=== PATIENT | male | born 1945 | race Caucasian/White ===

== ENCOUNTER 2016-07-29 12:16 | Emergency (ER) | payer OTHER, MEDICARE ==
[~2016-07-29] VITALS: Ht 177.8 cm; Wt 119.5 kg
[~2016-07-29 12:16] MED LIST: ALPR-411 PO; CHOL100010 PO; CYAN10005 PO; GLC/500 PO; KETO2SHA TOP; ROSU5TAB PO; WARF-246 PO
[2016-07-29 12:26] VITALS: TEMP 36.8; Ht 177.8 cm; Wt 119.5 kg
[2016-07-29 13:16] LABS: BASO % 0.4 %; BASO ABS # 0.02 K/uL (0-0.2); COMPLETE YES; HEMATOCRIT 41.8 % (42-52); LYMPH % 16.1 %; LYMPH ABS # 0.74 K/uL (1.2-3.4); MEAN CELL VOLUME 87.4 fL (80-100); MEAN CORPUSCULAR HEMOGLOBIN 30.1 pg (25-34); MEAN CORPUSCULAR HGB CONC 34.4 g/dl (32-36); MONO % 6.7 %; NEUT % 74.8 %; PLATELET COUNT 160 K/uL (130-400); RED BLOOD COUNT 4.78 M/uL (4.7-6.1)
--- NOTE | 2016-07-29 13:20 | DIAGNOSTIC IMAGING REPORT ---
CHEST ONE VIEW PORTABLE CLINICAL HISTORY: EVALUATE WEAKNESS dyspnea COMPARISON STUDY: 07/16/2016 FINDINGS: The bones soft tissues and hemidiaphragms are normal. The cardiomediastinal silhouette is normal. The lungs are clear. The pulmonary vasculature is normal. IMPRESSION: Negative chest. Electronically signed by: Chandler Koch M.D. 07/29/2016 1:18 PM
[2016-07-29 13:33] VITALS: O2SAT 97
[2016-07-29 13:34] LABS: ALT/SGPT 36 U/L (12-78); BLOOD UREA NITROGEN 11 mg/dl (7-18); BUN/CREATININE RATIO 12.1 (10-20); CALCIUM 8.7 mg/dl (8.5-10.1); CARBON DIOXIDE 23 mmol/L (21-32); CHLORIDE 109 mmol/L (98-107); CREATININE 0.94 mg/dl (0.60-1.40); GLUCOSE 111 mg/dl (70-99); MAGNESIUM 2.1 mg/dl (1.8-2.4); POTASSIUM 3.7 mmol/L (3.5-5.1); SODIUM 142 mmol/L (136-145)
[2016-07-29 13:39] LABS: ALKALINE PHOSPHATASE 42 U/L (45-117); AST/SGOT 21 U/L (15-37)
[2016-07-29 13:46] LABS: INR 1.9 (0.9-1.1); PARTIAL THROMBOPLASTIN RATIO 1.2; PROTHROMBIN TIME (PATIENT) 20.7 SECONDS (9.0-12.0)
[2016-07-29 14:38] LABS: URINE APPEARANCE CLEAR (CLEAR); URINE BILIRUBIN NEG (NEG); URINE COLOR DK YELLOW; URINE NITRITE NEG (NEG); URINE SPECIFIC GRAVITY 1.023 (1.000-1.030); UROBILINOGEN NEG (NEG)
[2016-07-29 15:01] LABS: MANUAL MICROSCOPIC REQUIRED? NO; REVIEW REQ? NO
--- NOTE | 2016-07-29 16:00 | DIAGNOSTIC IMAGING REPORT ---
HEAD CT NONCONTRAST CT DOSE: HISTORY: Mental status change diffuse weakness TECHNIQUE: Multiaxial CT images of the head were performed without the use of intravenous contrast. Comparison: December 01, 2015 Findings: The paranasal sinuses and mastoid air cells are clear. Scattered areas of chronic small vessel change and encephalomalacia. No change from the prior study. No new or interval finding. No evidence for acute intracranial hemorrhage. Impression: Chronic and age-related change. No acute intracranial abnormality. Electronically signed by: Chandler Koch M.D. 07/29/2016 3:58 PM Dictated Date/Time: 07/29/2016 3:57 PM
--- NOTE | 2016-07-29 16:07 | DIAGNOSTIC IMAGING REPORT ---
CT ANGIOGRAM OF THE CHEST CLINICAL HISTORY: Shortness of breath. Suspected pulmonary embolism. COMPARISON STUDY: 08/19/2015 TECHNIQUE: Following the IV administration of 116 mL of Optiray-320, CT angiogram of the thorax was performed from the thoracic inlet to the lung bases utilizing the pulmonary embolus protocol. Images are reviewed in the axial, sagittal, and coronal planes. IV contrast was administered without complication. MIP imaging was performed. CT DOSE: 1827.38 mGy.cm FINDINGS: No pathologically enlarged axillary mediastinal or hilar lymph nodes were visualized. There was no evidence of thoracic aortic dilatation. There were no pulmonary artery filling defects to indicate acute pulmonary embolism. No pleural effusions are visualized. There is no focal pulmonary consolidation there is a 2 mm right middle lobe pulmonary nodule. There is subpleural reticulation within the left upper lobe unchanged from the preceding study. There is a 2.5 mm calcified granuloma within left upper lobe. There is a stable 2 cm left lobe thyroid nodule. There is a stable 21 mm left adrenal nodule. There is mild hepatic steatosis. There are stable renal hypodensities likely representing cysts. There is a midline subcutaneous mass, likely representing a sebaceous cyst. IMPRESSION: 1. No CT evidence of acute pulmonary embolism 2. No acute intrathoracic findings. Electronically signed by: Angel Driscoll M.D. 07/29/2016 4:05 PM Dictated Date/Time: 07/29/2016 3:58 PM
[2016-07-29 18:27] VITALS: BP 165/78; PULSE 73; O2SAT 98
--- NOTE | 2016-07-29 18:33 | EMERGENCY ROOM VISIT NOTE ---
History Report prepared by Sisi: Cathy Cade Under the Supervision of: Dr. Jozef Barth D.O. First contact with patient: 12:38 Chief Complaint: WEAKNESS Stated Complaint: WEAK Nursing Triage Summary: Triage note: pt ambulatory to triage. pt reports increased numbness in arms and legs. pt reports he has had numbness x 2 years. pt reports "while i was driving here today i felt like i was going to pass out. " History of Present Illness The patient is a 71 year old male who presents to the Emergency Room with complaints of intermittent episodes of generalized weakness over the past 6 months, which has become progressively worse within the last 2 months. Currently , while resting, he is not in any discomfort, but he states that his symptoms are exacerbated with minimal exertion. Since the time of onset, the patient has been experiencing sudden onsets of generalized weakness with exertion, however, over the last 2 months the episodes have become more frequent with simple events , such as getting up out of his chair or walking to the mailbox. During these episodes, he also notes that he becomes short of breath and experiences cramping /numbness to his arms and legs. He states that he also feels like he is going to pass out, but he denies ever losing consciousness. He also denies experiencing chest pain, diaphoresis, nausea or vomiting during these episodes. Patient states that he has followed up with his pharmacy benefit manager 3 times in the past month and has had multiple tests done without significant results. He also has an appointment for additional scans for hematology/oncology within he next week. However, after experiencing an additional episode with similar, but more intense symptoms at 0830 this morning, he came to the ED for further evaluation. Patient also notes that he just got over a virus including headache , fever of 102F, sinus congestion and generalized body aches 2 days prior, but those symptoms have since resolved. Patient has a history of CAD, htn, and Delray cell carcinoma. Source of History: patient Onset: 0830 this am Position: other (generalized) Symptom Intensity: no current discomfort Quality: other (weakness) Timing: intermittent Modifying Factors (Worsening): exertion Modifying Factors (Relieving): rest Associated Symptoms: + SOB, + numbness (arms and legs), No chest pain, No nausea, No vomiting Review of Systems See HPI for pertinent positives & negatives. A total of 10 systems reviewed and were otherwise negative. Past Medical & Surgical Medical Problems: (1) Bilateral pulmonary embolism (2) CAD (coronary artery disease) (3) DVT (deep venous thrombosis) (4) History of right hip replacement (5) Hypercholesteremia (6) Hypertension (7) Delray cell carcinoma Family History FH: cancer FHx: myocardial infarction Social History Smoking Status: Former Smoker Alcohol Use: occasionally Drug Use: none Marital Status: Housing Status: lives with significant other Occupation Status: employed Current/Historical Medications Scheduled Cholecalciferol (Vitamin D), 2,000 INTER.UNIT PO DAILY Cyanocobalamin (Vitamin B-12), 1,000 MCG PO DAILY Metformin Hcl (Glucophage), 500 MG PO DAILY Rosuvastatin Calcium (Crestor), 5 MG PO Q2D Warfarin Sodium (Warfarin Sodium), 7.5 MG PO 3XWK Warfarin Sodium (Warfarin Sodium), 5 MG PO 4XWK Scheduled PRN Alprazolam (Alprazolam), 0.5 MG PO TID PRN for Anxiety Allergies Coded Allergies: Ciprofloxacin (Verified Allergy, Unknown, Unknown, 05/22/16) Niacin (Verified Allergy, Unknown, Unknown, 05/22/16) Paroxetine (Verified Allergy, Unknown, UNKNOWN, 05/22/16) Sulfamethoxazole w/Trimethoprim (Verified Allergy, Unknown, Unknown, 05/22) Statins (Verified Adverse Reaction, Intermediate, GI SYMPTOMS, 05/22/16) muscle pain Physical Exam Vital Signs Date Time Temp Pulse Resp B/P Pulse Ox O2 Delivery O2 Flow Rate FiO2 07/29/16 16:28 76 18 141/59 97 Room Air 07/29/16 13:38 73 07/29/16 13:33 69 12 144/71 95 Room Air 92 130/65 85 130/65 07/29/16 13:33 97 Room Air 07/29/16 12:26 36.8 97 20 161/86 97 Room Air Physical Exam GENERAL: Sitting up in bed, no acute distress, nontoxic. EYE EXAM: normal conjunctiva, PERRL and EOM's intact OROPHARYNX: no exudate, no erythema, lips, buccal mucosa, and tongue normal and mucous membranes are moist NECK: supple, no nuchal rigidity, no adenopathy, non-tender LUNGS: Clear to auscultation. Normal chest wall mechanics HEART: Faint systolic ejection murmur. ABDOMEN: abdomen soft, non-tender, normo-active bowel sounds, no masses, no rebound or guarding. BACK: Back is symmetrical on inspection and there is no deformity, no midline tenderness, no CVA tenderness. SKIN: no rashes and no bruising UPPER EXTREMITIES: upper extremities are grossly normal. LOWER EXTREMITIES: Calves are equal bilaterally with faint pitting edema NEURO EXAM: Normal sensorium, cranial nerves II-XII intact, normal speech, no weakness of arms, no weakness of legs. No drift. Finger to nose intact. Sensation intact. Medical Decision & Procedures ER Provider Diagnostic Interpretation: Xray results per the radiologist and my interpretation. Other results have been interpreted by the radiologist and reviewed by me. CT:Per my review, radiologist interpretation. CHEST ONE VIEW PORTABLE CLINICAL HISTORY: EVALUATE WEAKNESS dyspnea COMPARISON STUDY: 07/16/2016 FINDINGS: The bones soft tissues and hemidiaphragms are normal. The cardiomediastinal silhouette is normal. The lungs are clear. The pulmonary vasculature is normal. IMPRESSION: Negative chest. Electronically signed by: Chandler Koch M.D. 07/29/2016 1:[address] CT DOSE: HISTORY: Mental status change diffuse weakness TECHNIQUE: Multiaxial CT images of the head were performed without the use of intravenous contrast. Comparison: December 01, 2015 Findings: The paranasal sinuses and mastoid air cells are clear. Scattered areas of chronic small vessel change and encephalomalacia. No change from the prior study. No new or interval finding. No evidence for acute intracranial hemorrhage. Impression: Chronic and age-related change. No acute intracranial abnormality. Electronically signed by: Chandler Koch M.D. 07/29/2016 3:58 PM Dictated Date/Time: 07/29/2016 3:[address] ANGIOGRAM OF THE CHEST CLINICAL HISTORY: Shortness of breath. Suspected pulmonary embolism. COMPARISON STUDY: 08/19/2015 TECHNIQUE: Following the IV administration of 116 mL of Optiray-320, CT angiogram of the thorax was performed from the thoracic inlet to the lung bases utilizing the pulmonary embolus protocol. Images are reviewed in the axial, sagittal, and coronal planes. IV contrast was administered without complication. MIP imaging was performed. CT DOSE: 1827.38 mGy.cm FINDINGS: No pathologically enlarged axillary mediastinal or hilar lymph nodes were visualized. There was no evidence of thoracic aortic dilatation. There were no pulmonary artery filling defects to indicate acute pulmonary embolism. No pleural effusions are visualized. There is no focal pulmonary consolidation there is a 2 mm right middle lobe pulmonary nodule. There is subpleural reticulation within the left upper lobe unchanged from the preceding study. There is a 2.5 mm calcified granuloma within left upper lobe. There is a stable 2 cm left lobe thyroid nodule. There is a stable 21 mm left adrenal nodule. There is mild hepatic steatosis. There are stable renal hypodensities likely representing cysts. There is a midline subcutaneous mass, likely representing a sebaceous cyst. IMPRESSION: 1. No CT evidence of acute pulmonary embolism 2. No acute intrathoracic findings. Electronically signed by: Angel Driscoll M.D. 07/29/2016 4:05 PM Dictated Date/Time: 07/29/2016 3:58 PM Laboratory Results 07/29/16 13:05 Red Blood Count 4.78, Mean Corpuscular Volume 87.4, Mean Corpuscular Hemoglobin 30.1, Mean Corpuscular Hemoglobin Concent 34.4, Mean Platelet Volume 9.0, Neutrophils (%) (Auto) 74.8, Lymphocytes (%) (Auto) 16.1, Monocytes (%) (Auto) 6.7, Eosinophils (%) (Auto) 2.0, Basophils (%) (Auto) 0.4, Neutrophils # (Auto) 3.44, Lymphocytes # (Auto) 0.74, Monocytes # (Auto) 0.31, Eosinophils # (Auto) 0.09, Basophils # (Auto) 0.02 07/29/16 13:05 Test 07/29/16 13:01 07/29/16 13:05 07/29/16 13:40 07/29/16 17:27 Bedside Glucose 111 mg/dl (70-99) White Blood Count 4.60 K/uL (4.8-10.8) Red Blood Count 4.78 M/uL (4.7-6.1) Hemoglobin 14.4 g/dL (14.0-18.0) Hematocrit 41.8 % (42-52) Mean Corpuscular Volume 87.4 fL (80-100) Mean Corpuscular Hemoglobin 30.1 pg (25-34) Mean Corpuscular Hemoglobin Concent 34.4 g/dl (32-36) Platelet Count 160 K/uL (130-400) Mean Platelet Volume 9.0 fL (7.4-10.4) Neutrophils (%) (Auto) 74.8 % Lymphocytes (%) (Auto) 16.1 % Monocytes (%) (Auto) 6.7 % Eosinophils (%) (Auto) 2.0 % Basophils (%) (Auto) 0.4 % Neutrophils # (Auto) 3.44 K/uL (1.4-6.5) Lymphocytes # (Auto) 0.74 K/uL (1.2-3.4) Monocytes # (Auto) 0.31 K/uL (0.11-0.59) Eosinophils # (Auto) 0.09 K/uL (0-0.5) Basophils # (Auto) 0.02 K/uL (0-0.2) RDW Standard Deviation 41.0 fL (36.4-46.3) RDW Coefficient of Variation 12.7 % (11.5-14.5) Immature Granulocyte % (Auto) 0.0 % Immature Granulocyte # (Auto) 0.00 K/uL (0.00-0.02) Prothrombin Time 20.7 SECONDS (9.0-12.0) Prothromb Time International Ratio 1.9 (0.9-1.1) Activated Partial Thromboplast Time 32.1 SECONDS (21.0-31.0) Partial Thromboplastin Ratio 1.2 D-Dimer 190 ug/L FEU (0-500) Anion Gap 10.0 mmol/L (3-11) Est Creatinine Clear Calc Drug Dose 94.7 ml/min Estimated GFR () 94.8 Estimated GFR (Non- 81.8 BUN/Creatinine Ratio 12.1 (10-20) Calcium Level 8.7 mg/dl (8.5-10.1) Magnesium Level 2.1 mg/dl (1.8-2.4) Total Bilirubin 0.4 mg/dl (0.2-1) Direct Bilirubin 0.1 mg/dl (0-0.2) Aspartate Amino Transf (AST/SGOT) 21 U/L (15-37) Alanine Aminotransferase (ALT/SGPT) 36 U/L (12-78) Alkaline Phosphatase 42 U/L (45-117) Pro-B-Type Natriuretic Peptide 43 pg/ml (0-900) Total Protein 6.9 gm/dl (6.4-8.2) Albumin 3.5 gm/dl (3.4-5.0) Urine Color DK YELLOW Urine Appearance CLEAR (CLEAR) Urine pH 5.0 (4.5-7.5) Urine Specific [place] 1.023 (1.000-1.030) Urine Protein NEG (NEG) Urine Glucose (UA) NEG (NEG) Urine Ketones NEG (NEG) Urine Occult Blood NEG (NEG) Urine Nitrite NEG (NEG) Urine Bilirubin NEG (NEG) Urine Urobilinogen NEG (NEG) Urine Leukocyte Esterase NEG (NEG) Troponin I < 0.015 ng/ml (0-0.045) Laboratory results per my review. ECG Indication: weakness Rate (beats per minute): 72 Rhythm: sinus rhythm Findings: no ectopy, other (Normal axis.) ED Course ED COURSE: Vital signs were reviewed and showed hypertension. The patients medical record was reviewed The above diagnostic studies were performed and reviewed. ED treatments and interventions as stated above. 1241: The patient was evaluated in room A10. A complete history and physical examination was performed. 1330: Upon reevaluation, the patient was doing well. He was asymptomatic at this time. 1545: I revaluated the patient at this time and discussed the results of his workup that had returned. I recommended admission due to his worsening symptoms , but he stated that he would rather be worked up as an outpatient. He stated that he would only want to be admission if it is a full admission and not just for observation due to his insurance coverage. 1600: I spoke to case management. The patient's insurance is medicare and would require a 2 nights stay for admission. 1650: I reevaluated the patient at this time and updated him on the results of his workup, as well as my discussion with case management. Patient declined admission but stated that he would follow up with his pharmacy benefit manager tomorrow. A repeat troponin will be drawn. 1800: Reevaluated the patient at this time. Additional lab results were discussed. Discharge instructions were also discussed at this time. He verbalized his understanding and agreement with the treatment plan, and he is now ready for disposition. Based on the patients age, coexisting illnesses, exam and lab findings the decision to treat as an outpatient was made. The patient remained stable while under my care. The patient appeared well at the time of discharge. Medical Decision Differential Diagnosis includes but is not limited to dehydration, stroke, anemia, hypoglycemia, hyponatremia, hypernatremia, urinary tract infection, pneumonia, bronchitis, sepsis, gastroenteritis, additional abdominal pathology, metabolic abnormalities and infections. Patient is a 71-year-old male who presents the ER for diffuse weakness which has been worsening since this past February. He notes that he presented today because he felt "like I was going to ". He notes his weakness has been worsening and he has follow-up with his primary care doctor but they're tired of listening to him. He also notes that he has been short of breath but states that this is been stable since February. When discussing with the she notes that the shortness breath has been worsening as well. Patient is obese, no episodes and then a complete resolved. He gets these intermittently. He is completely neurologically intact on my exam. No difficulty ambulate. Throughout his stay patient is extremely concerned about his weakness. CBC, BMP , LFTs, bilirubin or unremarkable. BNP was negative. UA was clean. This is a diffuse weakness as opposed to a sending weakness. This does not support GBS. There is no focal deficit to suggest a stroke. There is no migratory symptoms to suggest MS. He denies any chest pain. I was concerned as the thinks that his shortness of breath has been worsening with exertion. I stressed this to the patient. He notes that he follows with cardiology and has had a nuclear stress a year ago which was negative. He has also been in contact with his pharmacy benefit manager 3 times in the past several months. Patient has not had a recent catheterization. He has had imaging for his cancer which show calcification within the LAD. He has hypertension and hyperlipidemia along with his age I do feel he is a higher risk. Patient appears to minimize his exertional shortness of breath. I recommended admission/observation. Patient was concerned as he does not want to be in observation status as he might have to pay more out-of- pocket. I had care management discussed with him. I talked with him in regards to this on 4 separate occasions. He was eventually agreeable and then again changed his mind at the last minute and elected to go home. At this time I requested a stay for an additional hour to obtain another troponin which was agreeable to. His symptoms started at 8:30 AM this morning. His troponin was negative which was drawn at 4:45 PM. This was drawn greater than 8 hours following the onset of symptoms. There is absolutely no change in his troponin. EKG was nondiagnostic. As the patient left following up for refusal of care I stressed the importance of following up with cardiology tomorrow. I did tell him I am unsure of the true cause of his diffuse weakness and cramping in his extremities. The patient requested to leave. I considered this to be leaving against medical advice. I personally discussed the following with them. They currently had a medical condition of: Dyspnea with exertion and I am concerned that this may be his anginal equivalent or other serious pathology ACS even despite 2 negative troponins. My proposed course of evaluation and treatment and that of any consultants is: Observation Benefits would include: possible diagnosis or excluding of ACS or an alternative serious condition such as unstable angina/ heart failure, which if identified early would lead to appropriate intervention in a timely manner lessing the burden of disability and . Risks of leaving before this had been completed include: misdiagnosis, worsening illness leading up to and including prolonged or permanent disability or . Specific risks pertinent, but not all inclusive, of their current medical condition include but are not limited to: Low EF, SC, CHF I also discussed alternatives including : Having the internal medicine attending discussed with them what to do as an inpatient. Despite this they stated they wanted to leave due to the uncertainty of admission versus observation and refused further evaluation, treatment, or admission at this time. They appear clinically sober, to be mentating appropriately, free from distracting injury, have controlled pain, appear to have intact insight, judgment, and reason and in my opinion have the capacity to make this decision. Specifically, they were able to verbally state back in a coherent manner their current medical condition/current diagnosis, the proposes course of treatment, and the risks, benefits, and alternatives of treatment versus leaving against medical advice. They understand that they may return to seek medical attention here at whatever time they want. I highly advised them to return to the Emergency Department immediately if they experienced any: Chest pain, shortness of breath, syncope, reconsidered treatment a/o admission, or had any other concerns. This would be without any repercussions. I recommended they follow-up with primary care doctor and preferably cardiology within 24 hours for further evaluation and treatment. They were discharged following informed refusal of care Impression Primary Impression: Dyspnea on exertion Additional Impression: Muscle cramps Scribe Attestation The scribe's documentation has been prepared under my direction and personally reviewed by me in its entirety. I confirm that the note above accurately reflects all work, treatment, procedures, and medical decision making performed by me. Departure Information Dispostion Home / Self-Care Referrals No Doctor, Assigned (PCP) Forms HOME CARE DOCUMENTATION FORM, IMPORTANT VISIT INFORMATION Patient Instructions A Signature Page, My [facility] Additional Instructions Please follow up with your primary care doctor/pharmacy benefit manager with in the next 24 hours. Any worsening of your symptoms, please return to the ED immediately. This includes chest pain, worsening shortness of breath with exertion, passing out, or any other concerning signs or symptoms from your standpoint. As we discussed you must follow up with your primary care/pharmacy benefit manager as stated above within next 24 hours. It will be most beneficial if you do talk to your pharmacy benefit manager as this could be related to your heart.
[2016-12-07] MEDS ORDERED: CARB25TA12 PO (11:06)
[2017-01-04] MEDS ORDERED: CRS/10 PO (09:36)
[2017-03-30] MEDS ORDERED: DOCU-94 PO (08:47)
== END 2016-07-29 18:27 | disposition home or self-care (01) ==
LOC: C.EDB 12:18 → C.EDA 18:27
DX: R06.09 Other forms of dyspnea (principal); R25.2 Cramp and spasm; R53.1 Weakness; I10 Essential (primary) hypertension; I25.10 Atherosclerotic heart disease of native coronary artery without angina pectoris; E78.00 Pure hypercholesterolemia, unspecified; E66.9 Obesity, unspecified; Z79.899 Other long term (current) drug therapy; Z79.01 Long term (current) use of anticoagulants; Z86.718 Personal history of other venous thrombosis and embolism; Z86.711 Personal history of pulmonary embolism; Z85.821 Personal history of Merkel cell carcinoma; Z68.37 Body mass index [BMI] 37.0-37.9, adult; Z87.891 Personal history of nicotine dependence; Z80.9 Family history of malignant neoplasm, unspecified; Z82.49 Family history of ischemic heart disease and other diseases of the circulatory system; Z51.81 Encounter for therapeutic drug level monitoring; I26.99 Other pulmonary embolism without acute cor pulmonale

== ENCOUNTER → 2016-09-20 | Outpatient (CLI) | payer OTHER, MEDICARE ==
[~2016-09-20] MED LIST changes: +CARB25TA12 PO; +CRS/10 PO; +DOCU-94 PO; -KETO2SHA TOP; +OPTIRAY 320 IV PRN; -ROSU5TAB PO
--- NOTE | 2016-09-20 16:11 | DIAGNOSTIC IMAGING REPORT ---
CT OF THE ABDOMEN AND PELVIS WITH CONTRAST CLINICAL HISTORY: Abdominal pain, diarrhea and nausea. Diverticulosis. Evaluate for diverticulitis. COMPARISON STUDY: CT of the abdomen and pelvis November 24, 2014 and ultrasound December 08, 2015. TECHNIQUE: Following IV administration of 120 mL of Optiray-320, axial images of the abdomen and pelvis were obtained from the lung bases to the proximal femurs. Images were reviewed in the axial, sagittal, and coronal planes. IV contrast was administered without complication. Oral contrast was administered. CT DOSE: 1355.25 mGy.cm FINDINGS: A left adrenal nodule is unchanged since CT of November 24, 2014. This represents an adenoma. A subcentimeter left hepatic lobe lesion is unchanged. This represents a cyst. There is fatty infiltration of the liver. The right adrenal gland, spleen and pancreas are normal. Water attenuation bilateral renal lesions represent cysts. There is no hydronephrosis. There is left colon diverticulosis without evidence for acute diverticulitis. Images of the pelvis are degraded by streak artifact from a right hip arthroplasty. There is no lymphadenopathy. There is no ascites. The appendix is not visualized. There is moderate plaque of the aorta which is normal in caliber. IMPRESSION: 1. No acute process within the abdomen or pelvis. 2. Fatty liver. 3. Left colon diverticulosis without evidence for acute diverticulitis. Electronically signed by: Jewel Mehta M.D. 09/20/2016 4:10 PM Dictated Date/Time: 09/20/2016 4:00 PM
== END | disposition home or self-care (01) ==
LOC: C.CTS 13:45
PROVIDERS: ATTEND Internal Medicine Geriatric Medicine
DX: K57.30 Diverticulosis of large intestine without perforation or abscess without bleeding (principal); K76.0 Fatty (change of) liver, not elsewhere classified; Z51.81 Encounter for therapeutic drug level monitoring; Z79.01 Long term (current) use of anticoagulants; I26.99 Other pulmonary embolism without acute cor pulmonale

== ENCOUNTER → 2016-10-11 | Outpatient (CLI) | payer OTHER, MEDICARE ==
[~2016-10-11] MED LIST changes: -OPTIRAY 320 IV PRN
[2016-10-11 16:17] LABS: ESTIMATED AVERAGE GLUCOSE 128 mg/dl; HA1C FLAG Normal (Normal)
[2016-10-11 16:27] LABS: BLOOD UREA NITROGEN 10 mg/dl (7-18); CALCIUM 8.4 mg/dl (8.5-10.1); CARBON DIOXIDE 24 mmol/L (21-32); CHLORIDE 105 mmol/L (98-107); CREATININE 0.87 mg/dl (0.60-1.40); GLUCOSE 86 mg/dl (70-99); POTASSIUM 3.8 mmol/L (3.5-5.1); SODIUM 139 mmol/L (136-145)
[2016-10-11 16:32] LABS: CHOLESTEROL 266 mg/dl (0-200); HDL CHOLESTEROL 38 mg/dl; LDL CHOLESTEROL CALCULATED 175 mg/dl; TRIGLYCERIDES 263 mg/dl (0-150); VERY LOW DENSITY LIPOPROT CALC 53 mg/dl
== END | disposition home or self-care (01) ==
LOC: C.LAB 14:23
PROVIDERS: ATTEND Internal Medicine Endocrinology, Diabetes & Metabolism
DX: E11.42 Type 2 diabetes mellitus with diabetic polyneuropathy (principal); E78.00 Pure hypercholesterolemia, unspecified; E55.9 Vitamin D deficiency, unspecified

== ENCOUNTER → 2016-11-10 | Outpatient (CLI) | payer OTHER, MEDICARE ==
[~2016-11-10] MED LIST changes: +GADAVIST IV PRN
--- NOTE | 2016-11-10 11:41 | DIAGNOSTIC IMAGING REPORT ---
MRI OF THE BRAIN COMBO CLINICAL HISTORY: Memory loss. Tremor. COMPARISON STUDY: CT of the brain dated 07/29/2016. MRI of the brain dated 02/28/2015. TECHNIQUE: MRI of the brain was performed utilizing various T1 and T2-weighted sequences in the axial, sagittal, and coronal planes. Contrast-enhanced sequences were acquired following the administration of 12 cc of Gadavist. FINDINGS: Brain parenchyma: There are age-related involutional changes noting mild patchy subcortical and periventricular microangiopathic disease. Left frontal encephalomalacia is unchanged and consistent with a remote infarct. There is no hemorrhage or mass effect. There is no restricted diffusion to suggest acute ischemia. No enhancing mass lesion is identified on the postcontrast images. Badillo-white matter differentiation is preserved. No extra-axial fluid collection is seen. The cerebellar tonsils are normal in configuration. Ventricles, sulci, and cisterns: Prominent secondary to involutional change. Pituitary and sella: Unremarkable. Intracranial vasculature: Normal flow voids are maintained at the skull base. Orbits: The bony orbits are grossly intact. Orbital contents are normal in appearance. Sinuses and mastoids: Clear. Calvarium: Unremarkable. Cervical cord: Partially visualized cervical spinal cord is normal in morphology and signal intensity. IMPRESSION: 1. No acute intracranial abnormality. 2. Age-related change and remote left frontal infarct as above. Electronically signed by: Ed Torres M.D. 11/10/2016 11:39 AM Dictated Date/Time: 11/10/2016 11:36 AM
[2016-11-10 14:55] LABS: PROSTATE SPECIFIC ANTIGEN 1.12 ng/ml (0.000-4.000); THYROID STIMULATING HORMONE 1.35 uIu/ml (0.300-4.500)
[2016-11-10 15:22] LABS: LYME DISEASE AB IGG NEG (NEG)
[2016-11-10 15:25] LABS: LYME DISEASE AB IGM NEG (NEG)
[2016-11-17 02:22] LABS: ACETYLCHOLINE RECEP MODULATING 10; ACETYLCHOLINE RECEPT BLOCKING <15 % inhibit (<15); ANTI-CENTROMERE AB <1.0 NEG AI (<1.0 NEG); ANTI-SS-A <1.0 NEG AI (<1.0 NEG); ANTI-SS-B <1.0 NEG AI (<1.0 NEG); DNA ds CRITHIDIA NEGATIVE (NEGATIVE); LEAD BLOOD LESS THAN 1 MCG/DL (0-9); MICROSOMAL AB 2 IU/ML (<9); RECEPTOR BINDING AB <0.30 nmol/L (<=0.30); Sm Antibody <1.0 NEG AI (<1.0 NEG)
[2016-11-17 12:50] LABS: ANA TITER 1:40 TITER (<1:40)
== END | disposition home or self-care (01) ==
LOC: C.MRI 10:47
PROVIDERS: ATTEND Psychiatry & Neurology Neurology
DX: G20 Parkinson's disease (principal); R41.3 Other amnesia; R25.1 Tremor, unspecified; Z12.5 Encounter for screening for malignant neoplasm of prostate

== ENCOUNTER → 2016-11-12 | Outpatient (CLI) | payer OTHER, MEDICARE ==
[~2016-11-12] MED LIST changes: -GADAVIST IV PRN
== END | disposition home or self-care (01) ==
LOC: C.LABBC 14:43
PROVIDERS: ATTEND Internal Medicine
DX: C4A.62 Merkel cell carcinoma of left upper limb, including shoulder (principal)

== ENCOUNTER → 2016-12-04 | Outpatient (CLI) | payer OTHER, MEDICARE ==
[2016-12-10 14:22] LABS: COBALT 24HR URINE (HMG) 0 mcg/L (< 3); THALLIUM 24 HR URINE < 1 mcg/L (< 3)
== END | disposition home or self-care (01) ==
LOC: C.LABSPEC 12-01 15:51
PROVIDERS: ATTEND Psychiatry & Neurology Neurology
DX: R53.83 Other fatigue (principal); R41.3 Other amnesia; R25.2 Cramp and spasm; G20 Parkinson's disease

== ENCOUNTER → 2016-12-24 | Outpatient (CLI) | payer OTHER, MEDICARE | END | disposition home or self-care (01) | LOC: C.LAB 15:52 | PROVIDERS: ATTEND Physician Assistant Medical | DX: C4A.62 Merkel cell carcinoma of left upper limb, including shoulder (principal) ==

== ENCOUNTER → 2017-02-10 | Outpatient (CLI) | payer OTHER, MEDICARE ==
[2017-02-10 17:02] LABS: BLOOD UREA NITROGEN 10 mg/dl (7-18); BUN/CREATININE RATIO 10.3 (10-20); CALCIUM 8.7 mg/dl (8.5-10.1); CARBON DIOXIDE 24 mmol/L (21-32); CHLORIDE 107 mmol/L (98-107); CHOLESTEROL 259 mg/dl (0-200); CREATININE 0.97 mg/dl (0.60-1.40); GLUCOSE 93 mg/dl (70-99); POTASSIUM 3.8 mmol/L (3.5-5.1); SODIUM 140 mmol/L (136-145); TRIGLYCERIDES 254 mg/dl (0-150); VERY LOW DENSITY LIPOPROT CALC 51 mg/dl
[2017-02-10 17:04] LABS: CHOLESTEROL/HDL RATIO 7.2; HDL CHOLESTEROL 36 mg/dl; LDL CHOLESTEROL CALCULATED 172 mg/dl
[2017-02-11 07:08] LABS: ESTIMATED AVERAGE GLUCOSE 126 mg/dl; HA1C FLAG Normal (Normal)
--- NOTE | 2017-02-17 10:09 | CODING QUERY MEDICAL NECESSITY ---
CQSUPPORTING DIAGNOSIS NEEDED A supporting diagnosis is required for the test/procedure performed on this patient in order for us to be reimbursed by the patient's insurance. Please provide a supporting diagnosis for the following test/procedure listed below next to the test name along with your signature. *If there is no additional diagnosis for this patient that would support the following test/procedure please document that below next to the test/procedure. Test(s)/Procedure(s) that require a supporting diagnosis: DOS 02/10/17 GLYCATED HEMOGLOBIN TEST ORDERED BY CHUNG PEPPER Provider Signature: Date: Thank you Kitty Castillo Health Information Management Once completed, please kindly fax back to [phone] For questions please call [phone]
== END | disposition home or self-care (01) ==
LOC: C.LAB 15:17
PROVIDERS: ATTEND Physician Assistant
DX: E04.2 Nontoxic multinodular goiter (principal); D55.9 Anemia due to enzyme disorder, unspecified; D35.02 Benign neoplasm of left adrenal gland; E78.00 Pure hypercholesterolemia, unspecified; E21.1 Secondary hyperparathyroidism, not elsewhere classified; E11.42 Type 2 diabetes mellitus with diabetic polyneuropathy

== ENCOUNTER → 2017-04-06 | Outpatient (CLI) | payer OTHER, MEDICARE | END | disposition home or self-care (01) | LOC: C.LAB 15:03 | PROVIDERS: ATTEND Urology | DX: N40.1 Benign prostatic hyperplasia with lower urinary tract symptoms (principal) ==

== ENCOUNTER → 2017-10-20 | Outpatient (CLI) | payer OTHER, MEDICARE ==
[2017-10-20 13:25] LABS: HEMOGLOBIN A1C 6.1 % (4.5-5.6)
[2017-10-20 14:13] LABS: BLOOD UREA NITROGEN 9 mg/dl (7-18); CALCIUM 8.7 mg/dl (8.5-10.1); CARBON DIOXIDE 24 mmol/L (21-32); CHOLESTEROL 255 mg/dl (0-200); CREATININE 0.93 mg/dl (0.60-1.40); GLUCOSE 88 mg/dl (70-99); SODIUM 136 mmol/L (136-145)
[2017-10-20 14:18] LABS: LDL CHOLESTEROL CALCULATED 152 mg/dl
[2017-10-20 15:29] LABS: CREATININE RANDOM URINE 86.4 mg/dl
== END | disposition home or self-care (01) ==
LOC: C.LAB 11:38
PROVIDERS: ATTEND Physician Assistant
DX: E11.42 Type 2 diabetes mellitus with diabetic polyneuropathy (principal); E21.1 Secondary hyperparathyroidism, not elsewhere classified; E55.9 Vitamin D deficiency, unspecified; E78.00 Pure hypercholesterolemia, unspecified

== ENCOUNTER → 2017-11-02 | Outpatient (CLI) | payer OTHER, MEDICARE ==
[~2017-11-02] MED LIST changes: -CRS/10 PO; +ROSU20TA PO
--- NOTE | 2017-11-02 14:56 | DIAGNOSTIC IMAGING REPORT ---
HEAD WITHOUT CONTRAST (CT) CLINICAL HISTORY: 72 years-old Male presenting with NEW ONSET OF HEADACHES. TECHNIQUE: Multidetector CT imaging of the head was performed without the use of intravenous contrast. IV contrast: None. A dose lowering technique was used consistent with the principles of ALARA (as low as reasonably achievable). COMPARISON: MR from 11/10/[address] head from 07/29/2016. CT DOSE (mGy.cm): The estimated cumulative dose is 638.56 mGycm. 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 Ventricles and sulci normal in size. Redemonstration of the paramedian left frontal lobe chronic infarct. No mass effect or midline shift. No hemorrhage or acute territorial infarct. No extra-axial fluid collection. Paranasal sinuses and mastoid air cells clear. Calvarium intact. IMPRESSION: 1. No significant change compared to the prior study. No acute intracranial abnormality. 2. Old left frontal lobe infarct. Electronically signed by: Jasvir Mauricio M.D. 11/02/2017 2:54 PM Dictated Date/Time: 11/02/2017 2:51 PM
== END | disposition home or self-care (01) ==
LOC: C.CTS 14:33
PROVIDERS: ATTEND Psychiatry & Neurology Neurology
DX: R51 Headache (principal)

== ENCOUNTER 2017-11-12 17:13 | Emergency (ER) | payer OTHER, MEDICARE ==
[~2017-11-12] VITALS: Ht 177.8 cm; Wt 119.2 kg
[2017-11-12 17:15] VITALS: BP 153/83; PULSE 93; TEMP 36.9; O2SAT 97; Ht 177.8 cm; Wt 119.2 kg
--- NOTE | 2017-11-12 17:40 | EMERGENCY ROOM VISIT NOTE ---
History Report prepared by Sisi: Isaias Sharma Under the Supervision of: Dr. Vimal Beckham M.D. First contact with patient: 17:27 Chief Complaint: OTHER COMPLAINT Stated Complaint: LARGE RAISED AREA NEAR ANUS History of Present Illness The patient is a 72 year old male who presents to the Emergency Room with complaints of a constant, burning, thumb sized raised lump one inch from his anus which appeared last night. The patient reports that the region from the lump up to his anus is burning. The patient denies experiencing any bleeding or discharge from the lump. He denies any fevers, chills, or chest pain and notes baseline shortness of breath. He reports being diagnosed with Parkinson disease 1 year ago. The patient also notes a history of diabetes and hemorrhoids. Source of History: patient Onset: last night Position: buttock (1 inch from anus ) Quality: burning Timing: constant Modifying Factors (Worsening): other (none ) Modifying Factors (Relieving): other (none ) Associated Symptoms: + SOB (baseline), No fevers, No chills, No chest pain Note: Denies: bleeding or discharge form the lump. Review of Systems See HPI for pertinent positives & negatives. A total of 10 systems reviewed and were otherwise negative. Past Medical & Surgical Medical Problems: (1) Bilateral pulmonary embolism (2) CAD (coronary artery disease) (3) DVT (deep venous thrombosis) (4) History of right hip replacement (5) Hypercholesteremia (6) Hypertension (7) Donald cell carcinoma Old medical records were reviewed. Nurse's notes were reviewed and I agree with. Family History FH: cancer FHx: myocardial infarction Social History Smoking Status: Never Smoker Alcohol Use: occasionally Drug Use: none Marital Status: Housing Status: lives with significant other Occupation Status: employed Current/Historical Medications Scheduled Amoxicillin & Pot Clavulanate (Augmentin 875-125 mg), 875 MG PO BID Carbidopa/Levodopa (Sinemet 25MG/100MG), 1 TAB PO 5XD Cholecalciferol (Vitamin D), 5,000 INTER.UNIT PO DAILY Cyanocobalamin (Vitamin B-12), 1,000 MCG PO DAILY Docusate Sodium (Colace), 1 CAP PO DAILY Metformin Hcl (Glucophage), 500 MG PO BIDM Rosuvastatin Calcium (Crestor), 10 MG PO DAILY Warfarin Sodium (Warfarin Sodium), 7.5 MG PO 4XWK Warfarin Sodium (Warfarin Sodium), 5 MG PO 3XWK Scheduled PRN Alprazolam (Alprazolam), 0.5 MG PO TID PRN for Anxiety Allergies Coded Allergies: Ciprofloxacin (Verified Allergy, Unknown, Unknown, 05/22/16) Niacin (Verified Allergy, Unknown, Unknown, 05/22/16) Paroxetine (Verified Allergy, Unknown, UNKNOWN, 05/22/16) Sulfamethoxazole w/Trimethoprim (Verified Allergy, Unknown, Unknown, 05/22) Statins (Verified Adverse Reaction, Intermediate, GI SYMPTOMS, 05/22/16) muscle pain Physical Exam Vital Signs Date Time Temp Pulse Resp B/P (MAP) Pulse Ox O2 Delivery O2 Flow Rate FiO2 11/12/17 17:15 36.9 93 18 153/83 97 Room Air Physical Exam General: Non-ill appearing older male in no acute distress. HEENT: Normal cephalic atraumatic. Pupils are equal round and reactive to light. Extraocular movements are intact. Oropharynx is pink with moist mucous membranes. No swelling of the mouth lips or tongue. Neck: Supple with a midline trachea. No meningeal signs or stiffness, no JVD or bruits. No Stridor. Chest: Clear to auscultation bilaterally. No wheezes or rhonchi. No increased work of breathing. Heart: regular rate and rhythm. Abdomen: Soft nontender, nondistended without rebound guarding or rigidity. Extremities: No cyanosis clubbing or edema. No calf tenderness or assymetry Spine/Back. Non tender to palpation. No CVA tenderness Skin: Small indurated area several centimeters lateral of the rectum within the buttocks that possibly represents a folliculitis with a possible early abscess. Rectal: Normal tone, no masses, brown stool, guaiac negative. Neurologic exam: Cranial nerves two through 12 are intact. Motor and sensation are intact and symmetrical throughout. Medical Decision & Procedures Medications Administered Medications (Trade) Dose Ordered Sig/Geronimo Route Start Time Stop Time Status Last Admin Dose Admin Amoxicillin/ Clavulanate Potassium (Augmentin 875MG Home Pack) 1 homepack UD ONCE PO 11/12/17 17:45 11/12/17 17:46 DC 11/12/17 17:56 1 HOMEPACK ED Course 1727: Past medical records reviewed. The patient was evaluated in room C3, and a complete history and physical examination were performed. 174: Ordered Amoxicillin/Clavulanate Potassium 1 homepack PO. 174: Upon reevaluation, the patient is resting comfortably. I discussed the results and treatment plan with him. He verbalized agreement of the treatment plan. The patient was discharged home. Medical Decision Differentials include, but are not limited to; perirectal abscess, Hemorid, cellulitis, abscess. This patient comes in as described above. He is having pain near his rectum. On exam, it is actually in his buttocks and does not appear to be related to his rectum. I think he does have folliculitis but there is no definite evidence to suggest an early abscess it is indurated but not red or warm or fluctuant and it does not come to head. Given the fact he is on Coumadin, I do not think I&D is appropriate this point and also at this point I do not find anything definite to drain. I will have him use sitz baths as well as Augmentin 875 mg twice a day first dose was given here and apply topical antibiotic ointment. He should follow-up with his doctor Tuesday for recheck return to the ER over the weekend if: Increasing pain or swelling, redness or warmth, any new problems or concerns. He was happy with the plan and discharged to home. Medication Reconcilliation Current Medication List: was personally reviewed by me Blood Pressure Screening Patient's blood pressure: Normal blood pressure Blood pressure disposition: Elevated BP felt to be situational Impression Primary Impression: Acute folliculitis Scribe Attestation The scribe's documentation has been prepared under my direction and personally reviewed by me in its entirety. I confirm that the note above accurately reflects all work, treatment, procedures, and medical decision making performed by me. Departure Information Dispostion Home / Self-Care Prescriptions Amoxicillin & Pot Clavulanate (Augmentin 875-125 mg) 1 Tab Tab 875 MG PO BID for 10 Days, #20 TAB Prov: Vimal Beckham M.D. 11/12/17 Referrals No Doctor, Assigned (PCP) Forms HOME CARE DOCUMENTATION FORM, IMPORTANT VISIT INFORMATION, WORK / SCHOOL INSTRUCTIONS Patient Instructions My [facility] Additional Instructions Rest. Drink plenty of fluids. Use warm sitz baths Apply antibiotic ointment twice a day Use Augmentin 875 mg twice a day for 10 daysAntibiotic Return if: Increasing pain or swelling, worsening of symptoms, redness or warmth , fever or chills, any new problems or concerns
[2017-11-12] MEDS ORDERED: AMOXICIL/CLAVU 875MG HOME PACK PO ONE (17:45)
[2017-11-12] MEDS ORDERED: AMOX875T PO (17:47)
== END 2017-11-12 17:57 | disposition home or self-care (01) ==
LOC: C.EDB 17:13 → C.EDC 17:57
DX: L73.9 Follicular disorder, unspecified (principal); G20 Parkinson's disease; E11.9 Type 2 diabetes mellitus without complications; Z86.711 Personal history of pulmonary embolism; I25.10 Atherosclerotic heart disease of native coronary artery without angina pectoris; Z86.718 Personal history of other venous thrombosis and embolism; Z96.641 Presence of right artificial hip joint; E78.00 Pure hypercholesterolemia, unspecified; I10 Essential (primary) hypertension; Z85.821 Personal history of Merkel cell carcinoma; Z80.9 Family history of malignant neoplasm, unspecified; Z82.49 Family history of ischemic heart disease and other diseases of the circulatory system; Z79.01 Long term (current) use of anticoagulants; Z79.84 Long term (current) use of oral hypoglycemic drugs; Z79.899 Other long term (current) drug therapy; Z88.1 Allergy status to other antibiotic agents; Z88.2 Allergy status to sulfonamides; Z88.8 Allergy status to other drugs, medicaments and biological substances

== ENCOUNTER 2017-11-14 11:12 | Emergency (ER) | payer OTHER, MEDICARE ==
[~2017-11-14] VITALS: Ht 177.8 cm; Wt 119.7 kg
[~2017-11-14 11:12] MED LIST changes: +AMOX875T PO
[2017-11-14 11:16] VITALS: TEMP 36.8; Ht 177.8 cm; Wt 119.7 kg
[2017-11-14] MEDS ORDERED: EZET10TA63 PO (11:38)
[2017-11-14] MEDS ORDERED: CHOL1TAB42 PO (11:38)
[2017-11-14] MEDS ORDERED: LIDO/EPINEPHRINE/SOD BICARB 20 ML VIAL INFIL ONE (11:43)
--- NOTE | 2017-11-14 12:52 | EMERGENCY ROOM VISIT NOTE ---
ED Visit Note First contact with patient: 11:31 CHIEF COMPLAINT: Infection on the left buttock 3 days HISTORY OF PRESENT ILLNESS: Patient is a 72-year-old male who returns to the emergency department at the advice of his primary care provider for reevaluation of an infection on his left buttock. He was seen and evaluated here 2 days ago for a similar complaint, was diagnosed with a folliculitis/ early abscess, and was placed on Augmentin twice daily for 10 days. He has been taking the antibiotic as prescribed. His has been checking the area and noticed that it was getting larger. Patient called Dr. Borjas's office and was referred to the emergency department. He denies any drainage or discharge from the area. No fever or chills. He has discomfort with pressure, just when he is seated, but only rates his pain a 3/10. REVIEW OF SYSTEMS: Review of systems as per HPI. All other systems reviewed were negative. 10 systems reviewed. PMH: Electronic medical records are reviewed and summarized as above/below. See Problem List. His tetanus is up-to-date. SOCIAL HISTORY: Patient lives at home with his . Retired. He does not smoke.. PHYSICAL EXAM: Vital Signs: Reviewed Nurse's notes. CONSTITUTIONAL: Patient is a pleasant well-appearing 72-year-old male who is awake and alert and in no acute distress. INTEGUMENTARY: Examination of the inferior medial left buttock note a tender, fluctuant area consistent with a subcutaneous abscess with surrounding erythema and induration. The area is in the left buttock soft tissue, and does not extend into the perirectal or perianal areas. There is no pointing noted, no drainage or discharge present. EMERGENCY DEPARTMENT COURSE: The patient was seen and assessed as above. Old records were reviewed. At this point he appears to have a well-defined fluctuant abscess, which has not improved despite appropriate antibiotic therapy. I&D was offered and the patient was in agreement. Risks, benefits and alternatives were discussed and the patient was agreeable to proceed. The affected area was cleansed with Betadine. The skin over the abscess was anesthetized with 1% buffered lidocaine with epinephrine. When adequate anesthesia was obtained, the abscess cavity was incised with a number 11 scalpel blade. Purulent material drained and more was expressed. Culture was obtained and is pending. The abscess cavity was then probed for loculations and there were none. There were no deeper tracts which appeared to extend into the perirectal area. Abscess was irrigated copiously with normal saline solution, then packed with plain gauze packing dipped in Betadine. An absorbent dressing was applied. Patient was encouraged to finish the Augmentin as previously prescribed. Again culture is pending. Wound care measures were discussed. Differential diagnoses entertained included cellulitis, subcutaneous abscess versus perirectal versus perianal abscess, sebaceous cyst, lipoma, among others. Medication reconciliation: I attest that I have personally reviewed the patient' s current medication list. Blood pressure screening: Patient was found to have a slightly elevated blood pressure due to circumstances. I do not believe that the patient requires hypertension monitoring. Patient was reviewed with attending physician who also independently evaluated the patient. Problem List Medical Problems: (1) Bilateral pulmonary embolism Status: Resolved (2) CAD (coronary artery disease) Status: Chronic (3) DVT (deep venous thrombosis) Status: Resolved (4) History of right hip replacement Status: Resolved (5) Hypercholesteremia Status: Chronic (6) Hypertension Status: Chronic (7) Atlantic cell carcinoma Status: Chronic Current/Historical Medications Scheduled Amoxicillin & Pot Clavulanate (Augmentin 875-125 mg), 875 MG PO BID Carbidopa/Levodopa (Sinemet 25MG/100MG), 1 TAB PO 5XD Cholecalciferol (Vitamin D), 5,000 UNITS PO DAILY Cyanocobalamin (Vitamin B-12), 1,000 MCG PO DAILY Ezetimibe (Zetia), 10 MG PO QPM Metformin Hcl (Glucophage), 500 MG PO BIDM Rosuvastatin Calcium (Crestor), 10 MG PO DAILY Warfarin Sodium (Warfarin Sodium), 7.5 MG PO 4XWK Warfarin Sodium (Warfarin Sodium), 5 MG PO 3XWK Scheduled PRN Alprazolam (Alprazolam), 0.5 MG PO TID PRN for Anxiety Docusate Sodium (Colace), 100 MG PO DAILY PRN for Constipation Allergies Coded Allergies: Ciprofloxacin (Verified Allergy, Unknown, Unknown, 11/14/17) Niacin (Verified Allergy, Unknown, Unknown, 11/14/17) Paroxetine (Verified Allergy, Unknown, UNKNOWN, 11/14/17) Sulfamethoxazole w/Trimethoprim (Verified Allergy, Unknown, Unknown, ) Statins (Verified Adverse Reaction, Intermediate, GI SYMPTOMS, 11/14/17) muscle pain Vital Signs Date Time Temp Pulse Resp B/P (MAP) Pulse Ox O2 Delivery O2 Flow Rate FiO2 11/14/17 13:10 75 18 142/53 96 Room Air 11/14/17 11:16 36.8 83 20 147/77 96 Room Air Departure Information Impression Primary Impression: Left buttock abscess Referrals Jasvir Borjas M.D. (PCP) Patient Instructions My [facility] Additional Instructions Finish Augmentin as previously prescribed. All antibiotics can cause diarrhea. If this occurs and you feel worse or it does not resolve in 1-2 days follow up with your doctor or return to the Emergency Department as this could be signs of serious underlying problems. Any medication can cause an allergic reaction, stop the pills immediately and return to the ER for rash, hives, breathing difficulties, or swelling. Acetaminophen(Tylenol) may be used for fever or pain. Use 1000mg every six hours as needed. Avoid using more than 3000mg in a 24 hour period. Warm compresses to the affected area 4 times daily for 15-20 minutes. Dressing changes daily, more often if the bandage becomes saturated or soiled. May shower, or perform sitz baths. Be careful to not remove the packing material accidentally while bathing or changing the bandage. Packing removal in 48 hours , this can be done at home, here in the emergency department or with your primary care provider. Rest and drink plenty of fluids. Continue current medications. Return to the ER for severe pain, persistent fevers, spreading redness, or any worsening of your condition. Follow up with your primary physician within 2-3 days for a recheck of the current condition.
[2017-11-14 13:10] VITALS: BP 142/53; PULSE 75; O2SAT 96
--- NOTE | 2017-11-14 13:24 | EMERGENCY ROOM VISIT NOTE ---
ED Visit Note First contact with patient: 11:31 I have personally seen and evaluated the patient with the PA. I agree with the diagnosis and management decisions and have been personally involved in the case. Please see Sirena Daly PA-C's notes for further details of the history , physical and visit.
== END 2017-11-14 13:12 | disposition home or self-care (01) ==
LOC: C.EDB 11:14 → C.EDD 13:12
DX: L02.31 Cutaneous abscess of buttock (principal); I25.10 Atherosclerotic heart disease of native coronary artery without angina pectoris; E78.00 Pure hypercholesterolemia, unspecified; I10 Essential (primary) hypertension; Z79.01 Long term (current) use of anticoagulants; Z51.81 Encounter for therapeutic drug level monitoring; Z88.8 Allergy status to other drugs, medicaments and biological substances

== ENCOUNTER 2019-05-05 07:58 | Inpatient (IN) ==
[2019-05-05] MEDS ORDERED: SODIUM CHLORIDE 0.9% 500 ML IV SCH (08:30)
[2019-05-05] MEDS ORDERED: CEFAZOLIN 3000MG/72.5 ML BAG IV ONE (08:32)
[2019-05-05 09:03] LABS: Basophils # (auto) 0.01 K/uL (0-0.2); Basophils % (auto) 0.1 %; Eosinophils # (auto) 0.01 K/uL (0-0.5); Eosinophils % (auto) 0.1 %; Hematocrit (blood only) 41.3 % (42-52); Hemoglobin 13.9 g/dL (14.0-18.0); Immature Granulocytes # (auto) 0.02 K/uL (0.00-0.02); Immature Granulocytes % (auto) 0.2 %; Lymphocytes % (auto) 4.2 %; Mean Corpuscular Hemoglobin 30.3 pg (25-34); Mean Corpuscular Hgb Conc 33.7 g/dL (32-36); Mean Corpuscular Volume 90.2 fL (80-100); Mean Platelet Volume 9.6 fL (7.4-10.4); Monocytes # (auto) 1.01 K/uL (0.11-0.59); Monocytes % (auto) 8.5 %; Neutrophils # (auto) 10.31 K/uL (1.4-6.5); Neutrophils % (auto) 86.9 %; Platelet Count 162 K/uL (130-400); RDW Coefficient of Variation 13.1 % (11.5-14.5); RDW Standard Deviation 42.9 fL (36.4-46.3); Red Blood Count 4.58 M/uL (4.7-6.1); White Blood Count 11.86 K/uL (4.8-10.8)
[2019-05-05 09:12] LABS: INR 1.5 (0.9-1.1); Prothrombin Time 14.5 Seconds (9.0-12.0)
[2019-05-05 09:15] LABS: Albumin Level 3.5 gm/dl (3.4-5.0); BUN Creatinine Ratio 9.7 (10-20); Calcium 8.4 mg/dl (8.5-10.1); Creatinine Clr Calc Pharmacy 91.9 ml/min; Est GFR (African American) 95.3; Est GFR (Non-African American) 82.2
[2019-05-05 09:17] LABS: Bilirubin,Total 0.7 mg/dl (0.2-1); Globulin 3.6 gm/dl (2.5-4.0); Total Protein 7.1 gm/dl (6.4-8.2)
[2019-05-05] MEDS ORDERED: ACETAMINOPHEN 325 MG TAB PO PRN (09:17)
[2019-05-05] MEDS ORDERED: PROMETHAZINE HCL 12.5 MG in SODIUM CHLORIDE 0.9% 50 ML IV PRN (09:17)
[2019-05-05] MEDS ORDERED: ONDANSETRON INJ 2 MG/ML 2 ML VIAL IV PRN (09:17)
[2019-05-05] MEDS ORDERED: HYDROCODONE/ACETAMOPHEN 5/325MG TAB PO PRN (09:17)
[2019-05-05] MEDS ORDERED: PIPERACILL/TAZOBAC CONSULT ACTIVE PRN (09:22)
[2019-05-05] MEDS ORDERED: PIPERACILLIN/TAZOBACTAM 3.375 GM in DEXTROSE 5% 100 ML IV SCH (09:30)
--- NOTE | 2019-05-05 09:47 | Emergency Department Note ---
Entered by Johnna Rivera acting as a scribe for History of Present Illness General Chief complaint: Infection Stated complaint: POST SURGERY INFECTION ON STOMACH Time Seen by Provider: 05/05/19 08:24 Source: patient History of Present Illness Onset (ago): hour(s) (last night) Location: abdomen (periumbilical) Pain Consistency: + other (episode) Maximum Pain Intensity: 4 Quality: + other (incision infection) Relieved By: not by medication (hydrocodeine) Associated symptoms: + other (redness and warmth around incision, pain in area, fever, difficulty urinating, burning sensation in intestines) The patient is a 74 year old male that is presenting to the Emergency Room with complaints of an incision infection that started last night status post a ventral hernia surgery 2 days ago. The patient reports that he had the procedure completed at [facility] by Dr. Smalls. He states that he started to have a fever last night around 100.4 to 100.6F. He notes that the area turned red and warm this morning. He denies that the area was red last night and notes that he only realized it was red once his informed him that it was this morning. He states that he has worsening pain in the area. The patient notes that he took Hydrocodeine as prescribed without relief in his current symptoms. He reports that he feels like his intestines are burning. He denies having a mesh put in place during the surgery. The patient reports that he had difficulty urinating after the surgery and had to be catheterized before discharge. He states that he was urinating normally yesterday but notes that he noticed some urinary retention this morning. He reports that he has a history of an appendectomy and notes that he did not have similar symptoms status post this procedure. Home Medications Home Medications Medication Instructions Recorded Confirmed Type cholecalciferol (vitamin D3) 5,000 6,000 units PO DAILY 04/10/18 05/05/19 History unit capsule cyanocobalamin (vitamin B-12) 1,000 mcg PO DAILY 09/04/18 05/05/19 History 1,000 mcg capsule docusate sodium 100 mg capsule 100 mg PO Q OTHER DAY cap 12/11/18 05/05/19 History metformin 500 mg tablet 250 mg PO BID tab 12/11/18 05/05/19 History amoxicillin 500 mg capsule 2,000 mg PO UD PRN #4 cap 12/12/18 05/05/19 History carbidopa 25 mg-levodopa 100 mg 1 tab PO QID 12/27/18 05/05/19 History tablet carbidopa ER 50 mg-levodopa 200 mg 1 tab PO HS #60 tab 12/27/18 05/05/19 Rx tablet,extended release rosuvastatin 2.5 mg PO 2XWK 03/30/19 05/05/19 History alprazolam 0.5 mg tablet 0.5 mg PO TID PRN #90 tab 04/10/19 05/05/19 Rx warfarin See Rx Instructions PO UD #0 tab 05/03/19 05/05/19 Rx enoxaparin 0.4 mg SUBCUT DAILY 05/05/19 05/05/19 History hydrocodone-acetaminophen [Randolph] 1 - 2 tab PO UD PRN 05/05/19 05/05/19 History Allergies Allergy/AdvReac Type Severity Reaction Status Date / Time Bactrim Allergy Unknown Unknown Verified 11/14/17 11:39 Cipro Allergy Unknown Unknown Verified 11/14/17 11:39 ciprofloxacin Allergy Unknown Unknown Verified 05/05/19 08:30 niacin Allergy Unknown "SHOWED Verified 05/05/19 08:30 WHAT LOOKED LIKE A TUMOR ON MY LIVER" paroxetine Allergy Unknown UNKNOWN Verified 05/05/19 08:30 sulfamethoxazole Allergy Unknown Unknown Verified 05/05/19 08:30 trimethoprim Allergy Unknown Unknown Verified 05/05/19 08:30 Vkhfoqy-Fjp-Qfj Reductase AdvReac Unknown BONE ACHES Verified 05/05/19 08:30 Inhibitor AND MUSCLE ACHES Past Med/Surg History Medical History BPH (benign prostatic hyperplasia) (Acute) Diabetes (Acute) Esophageal dyskinesia (Acute) PT REPORTS MILD TROUBLE WITH SWALLOWING - PLANS TO DISCUSS WITH [facility] AT NEXT VISIT Irritable bowel syndrome (Acute) Parkinson's disease (Acute) Posttraumatic stress disorder (Acute) Thyroid nodule (Acute) Chronic constipation High cholesterol History of DVT (deep vein thrombosis) 2014 History of Donald cell carcinoma History of kidney stones History of panic attacks History of pulmonary embolus (PE) 2015 BILATERAL WITH DVT Neck problem "C5 PROBLEM" - PHYSICAL THERAPY HELPS - SOMETIMES TINGLING IN FINGERS Neuropathy Sleep apnea NO DEVICE Urinary incontinence Surgical History H/O ventral hernia repair (05/03/19) Open Ventral Hernia Repair Dr. 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 and A total of 10 systems reviewed and were otherwise negative Physical Exam Vital Signs Vital Signs - 24 hr 05/05/19 08:06 Temperature 37.2 C Temperature Source Oral Sepsis Recent Fever Within 48 Hours No Sepsis Action Taken by Nursing No Action Required Pulse Rate 101 H Respiratory Rate 20 Respiratory Effort / Characteristics Non-Labored Spontaneous Respiratory Depth Normal Blood Pressure 120/67 Blood Pressure Mean 84 Pulse Oximetry 96 Oxygen Delivery Method Room Air CONSTITUTIONAL/VITAL SIGNS: Reviewed / noted above. GENERAL: Non-toxic in appearance. INTEGUMENTARY: Vertical incision above the umbilicus with some glue in place. Above and below the surgical site there is erythema and warmth measuring approx. 5 in in height and 9 in. in width. HEAD: Normocephalic. EYES: without scleral icterus or trauma. ENT/OROPHARYNX: clear and moist. LYMPHADENOPATHY/NECK: Is supple without lymphadenopathy or meningismus. RESPIRATORY: Lungs clear and equal. CARDIOVASCULAR: Regular rate and rhythm. GI/ABDOMEN: Soft and nontender. No organomegaly or pulsatile mass. No rebound or guarding. Normal bowel sounds. EXTREMITIES: Warm and well perfused. BACK: No CVA tenderness. NEUROLOGICAL: Intact without focal deficits. PSYCHIATRIC: normal affect. MUSCULOSKELETAL: Normally developed with good muscle tone. Course 824:The patient was evaluated in room B12B. A complete history and physical examination was performed. 0841: I discussed the patients case with Dr. Smalls, General Surgery, who states that he will come to the ED to evaluate the patient. 0940: Upon evaluation, Dr. Smalls decided to have the patient stay in the hospital for further treatment and evaluation. Dr. Smalls's PA-C submitted the orders to admit. Consultations Consultation #1: I discussed the patients case with Dr. Smalls, General Surgery, who states that he will come to the ED to evaluate the patient. Time: 08:41 Administered Medications Discontinued Medications Sodium Chloride (Nss) 500 mls @ 999 mls/hr IV .Q31M ROQUE Stop: 05/05/19 09:00 Last Infusion: 05/05/19 09:35 Dose: 0 mls/hr Documented by: [id number] Admin: 05/05/19 08:58 Dose: 999 mls/hr Documented by: [id number] Medical Decision Making Differential Diagnosis Differential diagnosis: Etiologies such as post-surgical infection, cellulitis, abscess, MRSA infection, necrotizing fasciitis, dermatitis, drug eruption, as well as others were entertained. Medical Records Attestation: I reviewed the patient's medical records. Home Medications Current Medication List: was personally reviewed by me Laboratory Data Attestation: I reviewed the patient's lab results. Result diagrams: 05/05/19 08:48 05/05/19 08:48 Lab Results 05/05/19 05/05/19 05/05/19 Range/Units 08:48 08:48 08:48 WBC 11.86 H (4.8-10.8) K/uL RBC 4.58 L (4.7-6.1) M/uL Hgb 13.9 L (14.0-18.0) g/dL Hct 41.3 L (42-52) % MCV 90.2 (80-100) fL MCH 30.3 (25-34) pg MCHC 33.7 (32-36) g/dL RDW Std Deviation 42.9 (36.4-46.3) fL RDW Coeff of Matthew 13.1 (11.5-14.5) % Plt Count 162 (130-400) K/uL MPV 9.6 (7.4-10.4) fL Immature Gran % (Auto) 0.2 % Neut % (Auto) 86.9 % Lymph % (Auto) 4.2 % Kershaw % (Auto) 8.5 % Eos % (Auto) 0.1 % Baso % (Auto) 0.1 % Immature Gran # (Auto) 0.02 (0.00-0.02) K/uL Neut # (Auto) 10.31 H (1.4-6.5) K/uL Lymph # (Auto) 0.50 L (1.2-3.4) K/uL Kershaw # (Auto) 1.01 H (0.11-0.59) K/uL Eos # (Auto) 0.01 (0-0.5) K/uL Baso # (Auto) 0.01 (0-0.2) K/uL PT 14.5 H (9.0-12.0) Seconds INR 1.5 H (0.9-1.1) Sodium 137 (136-145) mmol/L Potassium 4.0 (3.5-5.1) mmol/L Chloride 106 (98-107) mmol/L Carbon Dioxide 25 (21-32) mmol/L Anion Gap 6.0 (3-11) BUN 9 (7-18) mg/dl Creatinine 0.92 (0.6-1.4) mg/dl Est Cr Clr Drug Dosing 91.9 ml/min Est GFR ( Amer) 95.3 Est GFR (Non-Af Amer) 82.2 BUN/Creatinine Ratio 9.7 L (10-20) Glucose 126 H (70-99) mg/dl Calcium 8.4 L (8.5-10.1) mg/dl Total Bilirubin 0.7 (0.2-1) mg/dl AST 14 L (15-37) U/L ALT 14 (12-78) U/L Alkaline Phosphatase 55 (45-117) U/L Total Protein 7.1 (6.4-8.2) gm/dl Albumin 3.5 (3.4-5.0) gm/dl Globulin 3.6 (2.5-4.0) gm/dl Albumin/Globulin Ratio 1.0 (0.9-2) Blood Pressure Blood Pressure Findings: Normal blood pressure MDM Narrative This is a 74-year-old male who presents to the ED with a chief complaint of redness in the area of a ventral hernia repair. The repair was performed by Dr. Smalls on , 2 days ago. The patient states that he did not notice the redness last night but this morning he noticed significant redness in his periumbilical abdominal area. He states that he had a fever of 100.4 last night. The patient denies any nausea or vomiting. He does report a sensation of some urinary retention. He states that he did have urinary retention following the surgery and he had to be catheterized before he was released. He was able to urinate yesterday but states that he has not urinated since last night. He has no other complaints at this time. His vital signs are normal with exception of his heart rate being 101. A bladder scan revealed only 60 cc of urine in the bladder. The patient was given IV Ancef. I spoke with Dr. Smalls. The physician litigation legal assistant for Dr. Smalls saw the patient in the emergency department. He wrote admission orders for the patient to be admitted. Impression & Plan Abdominal wall cellulitis Discharge Plan Visit Data Chief Complaint: Infection Stated Complaint: POST SURGERY INFECTION ON STOMACH ED Provider: Ke Olvera Discharge Problem: Abdominal wall cellulitis Patient Disposition: Being Evaluated by Surgeon Forms Stand Alone Forms: My [facility] Prescriptions Prescriptions: No Action cholecalciferol (vitamin D3) 5,000 unit capsule 6,000 units PO DAILY RF: 0 metformin 500 mg tablet 250 mg PO BID RF: 0 docusate sodium 100 mg capsule 100 mg PO Q OTHER DAY RF: 0 carbidopa-levodopa [Sinemet] 25-100 mg tablet 1 tab PO QID RF: 0 cyanocobalamin (vitamin B-12) 1,000 mcg capsule 1,000 mcg PO DAILY RF: 0 carbidopa-levodopa [Sinemet CR] 50-200 mg tablet extended release 1 tab PO HS Qty: 60 RF: 2 alprazolam 0.5 mg tablet 0.5 mg PO TID PRN (Reason: ANXIETY, PTSD) Qty: 90 RF: 0 amoxicillin 500 mg capsule 2,000 mg PO UD PRN (Reason: PRE DENTAL) Qty: 4 RF: 0 rosuvastatin 5 mg Tablet 2.5 mg PO 2XWK RF: 0 warfarin 5 mg tablet See Rx Instructions PO UD Qty: 0 RF: 0 enoxaparin 40 mg/0.4 mL syringe 0.4 mg subcut DAILY RF: 0 hydrocodone-acetaminophen [Randolph] 5-325 mg tablet 1 - 2 tab PO UD PRN (Reason: pain, for initial therapy. Max 8 per day) RF: 0 Referrals Referrals: Jasvir Borjas MD [Primary Care Provider] - The scribe's documentation has been prepared under my direction and personally reviewed by me in its entirety. I confirm that the note above accurately reflects all work, treatment, procedures, and medical decision making performed by me.
[2019-05-05] MEDS ORDERED: PHARMACY GLYCEMIC MGMT CONSULT PRN (09:56)
[2019-05-05] MEDS ORDERED: GLUCOSE 10 TABS/TUBE PO PRN (10:00)
[2019-05-05] MEDS ORDERED: CARBOHYDRATES FOR HYPOGLYCEMIA PO PRN (10:00)
[2019-05-05] MEDS ORDERED: GLUCAGON FOR INJ 1 MG VIAL IM PRN (10:00)
[2019-05-05] MEDS ORDERED: DEXTROSE 50% 50 ML SYRINGE IV PRN (10:00)
[2019-05-05] MEDS ORDERED: GLUCOSE 40% GEL 15 GM TUBE PO PRN (10:00)
--- NOTE | 2019-05-05 10:03 | History & Physical Report ---
Date of Service May 05, 2019 Assessment & Plan (1) Abdominal wall cellulitis: will admit for a day or 2 of IV antibiotics nothing to drain will add flomax for urinary hesitancy continue home meds History of Present Illness Primary Care Provider: Jasvir Borjas MD pt known to me as I had just repaired a ventral hernia 2 days ago. now with large area of erythema around incision. no drainage. low grade fever at home. only other issue is mild urinary hesitancy since surgery. Allergies Allergy/AdvReac Type Severity Reaction Status Date / Time Bactrim Allergy Unknown Unknown Verified 11/14/17 11:39 Cipro Allergy Unknown Unknown Verified 11/14/17 11:39 ciprofloxacin Allergy Unknown Unknown Verified 05/05/19 08:30 niacin Allergy Unknown "SHOWED Verified 05/05/19 08:30 WHAT LOOKED LIKE A TUMOR ON MY LIVER" paroxetine Allergy Unknown UNKNOWN Verified 05/05/19 08:30 sulfamethoxazole Allergy Unknown Unknown Verified 05/05/19 08:30 trimethoprim Allergy Unknown Unknown Verified 05/05/19 08:30 Sxgjkrl-[id number]-Ozq Reductase AdvReac Unknown BONE ACHES Verified 05/05/19 08:30 Inhibitor AND MUSCLE ACHES Home Medications Home Medications Medication Instructions Recorded Confirmed Type cholecalciferol (vitamin D3) 5,000 6,000 units PO DAILY 04/10/18 05/05/19 History unit capsule cyanocobalamin (vitamin B-12) 1,000 mcg PO DAILY 09/04/18 05/05/19 History 1,000 mcg capsule docusate sodium 100 mg capsule 100 mg PO Q OTHER DAY cap 12/11/18 05/05/19 History metformin 500 mg tablet 250 mg PO BID tab 12/11/18 05/05/19 History amoxicillin 500 mg capsule 2,000 mg PO UD PRN #4 cap 12/12/18 05/05/19 History carbidopa 25 mg-levodopa 100 mg 1 tab PO QID 12/27/18 05/05/19 History tablet carbidopa ER 50 mg-levodopa 200 mg 1 tab PO HS #60 tab 12/27/18 05/05/19 Rx tablet,extended release rosuvastatin 2.5 mg PO 2XWK 03/30/19 05/05/19 History alprazolam 0.5 mg tablet 0.5 mg PO TID PRN #90 tab 04/10/19 05/05/19 Rx warfarin See Rx Instructions PO UD #0 tab 05/03/19 05/05/19 Rx enoxaparin 0.4 mg SUBCUT DAILY 05/05/19 05/05/19 History hydrocodone-acetaminophen [Vaughn] 1 - 2 tab PO UD PRN 05/05/19 05/05/19 History Past Med/Surg History Medical History BPH (benign prostatic hyperplasia) (Acute) Diabetes (Acute) Esophageal dyskinesia (Acute) PT REPORTS MILD TROUBLE WITH SWALLOWING - PLANS TO DISCUSS WITH [facility] AT NEXT VISIT Irritable bowel syndrome (Acute) Parkinson's disease (Acute) Posttraumatic stress disorder (Acute) Thyroid nodule (Acute) Chronic constipation High cholesterol History of DVT (deep vein thrombosis) 2014 History of Donald cell carcinoma History of kidney stones History of panic attacks History of pulmonary embolus (PE) 2014 BILATERAL WITH DVT Neck problem "C5 PROBLEM" - PHYSICAL THERAPY HELPS - SOMETIMES TINGLING IN FINGERS Neuropathy Sleep apnea NO DEVICE Urinary incontinence Surgical History H/O ventral hernia repair (05/03/19) Open Ventral Hernia Repair Dr. 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 nad. appears comfortable Heent: WNL's abd: soft. incision looks good/intact with no drainage. large area of warm erythema surrounding the incision. no fluctuance ext: no c/c/e Results & Data Vital Signs (Past 12 Hours) Vital Signs Temp Pulse Resp BP Pulse Ox 05/05/19 08:06 37.2 C 101 H 20 120/67 96 Code Status & VTE Plan VTE Prophylaxis Plan VTE Prophylaxis will be ordered: Yes
[2019-05-05] MEDS ORDERED: PIPERACILLIN/TAZOBACTAM 4.5 GM in DEXTROSE 5% 100 ML IV ONE (10:15)
--- NOTE | 2019-05-05 10:28 | Pharmacy Report ---
Glycemic Control Consultation - Date of Service May 05, 2019 - Scope Scope: Glycemic Pharmacist consulted by Janey Noel on 05/05 for glycemic control and to write orders per [facility] inpatient glycemic control protocol - Objective Weight: 117.7 kg Accuchecks BSG (last 24hrs): 05/05/19 08:48 Glucose 126 H Laboratory Data (last 24hrs): 05/05/19 08:48 Potassium 4.0 Carbon Dioxide 25 Anion Gap 6.0 Creatinine 0.92 Est Cr Clr Drug Dosing 91.9 - Recent Pertinent Medications Outpatient Anti-diabetic Regimen: * metformin 250 mg bid * A1c = 5.9 % 01/17/19 Risk Factors for Insulin Resistance: * Diet: T2DM - Assessment & Plan Assessment & Plan: ASSESSMENT: * 74 year old male admitted with possible incision infection/abd wall cellulitis. He is s/p ventral hernia repair 2 days ago. Per surgery plan is to monitor on IV antibiotics as there is no drainage. Holding surgery for now * Type 2 diabetic managed on metformin at home - A1C 5.9 * Will start sliding scale insulin for now - hold basal insulin PLAN FOR INPATIENT GLYCEMIC CONTROL: * Holding outpatient oral diabetes medications * Basal insulin * hold * Bolus insulin * NovoLog per scale ACHS or Q6hrs while NPO * Goal Range: Low 110 mg/dL - High 140 mg/dL * Correction Factor: 25 mg/dL/unit * Nutritional / Prandial insulin per carb ratio of 1 unit per 9 grams CHO consumed * Please note that the plan above was derived based on current level of insulin resistance and hospital stress. These recommendations are appropriate for inpatient admission only. Plan of care upon discharge will need to be reassessed to avoid potential outpatient hypo/hyperglycemia. Thank you.
[2019-05-05 11:01] LABS: Appearance Urine Cloudy (Clear); Bacteria Urine Automated 3+ (Negative); Bilirubin Urine Negative (Negative); Blood Urine Trace (Negative); Color Urine Yellow; Epithelial Cell Urine Auto 0-5 /lpf (0-5); Glucose Urine UA Negative (Negative); Ketones Urine Negative (Negative); Leukocyte Esterase Urine 3+ (Negative); Nitrite Urine Positive (Negative); Protein Urine Negative (Negative); RBC Urine Automated 0-4 /hpf (0-4); Urobilinogen Urine Negative (Negative); WBC Urine Automated >30 /hpf (0-5)
[2019-05-05] MEDS ORDERED: ALPRAZolam 0.5 MG TABLET PO PRN (11:04)
[2019-05-05] MEDS ORDERED: INSULIN ASPART 100 UNITS/ML 3 ML PEN SC SCH (11:30)
[2019-05-05] MEDS: SODIUM CHLORIDE 0.9% 1000ML 1,000 ML IV SCH ×2 (11:30→21:37)
[2019-05-05] MEDS: CARBIDOPA/LEVODOPA 25/100MG TAB PO SCH ×3 (11:40→17:47)
[2019-05-05] MEDS: TAMSULOSIN HCL 0.4 MG CAP PO SCH (11:41)
[2019-05-05] MEDS ORDERED: WARFARIN SOD 10 MG TAB PO ONE (16:00)
[2019-05-05] MEDS: PIPERACILLIN/TAZOBACTAM 4.5 GM in DEXTROSE 5% 100 ML IV SCH ×2 (16:10→23:57)
[2019-05-05] MEDS: HYDROCODONE/ACETAMOPHEN 5/325MG TAB PO PRN (16:24)
[2019-05-05] MEDS ORDERED: METFORMIN HCL 500 MG TAB PO SCH (17:00)
[2019-05-05] MEDS: METFORMIN HCL 500 MG TAB PO SCH (17:46)
[2019-05-05] MEDS: CARBIDOPA/LEVODOPA 50/200MG EXT REL TAB PO SCH (22:01)
[2019-05-06] MEDS: CARBIDOPA/LEVODOPA 25/100MG TAB PO SCH ×4 (05:14→17:50)
[2019-05-06 05:39] LABS: Basophils # (auto) 0.02 K/uL (0-0.2); Basophils % (auto) 0.2 %; Eosinophils % (auto) 1.2 %; Hematocrit (blood only) 37.9 % (42-52); Immature Granulocytes # (auto) 0.02 K/uL (0.00-0.02); Immature Granulocytes % (auto) 0.2 %; Lymphocytes # (auto) 0.94 K/uL (1.2-3.4); Lymphocytes % (auto) 10.9 %; Mean Corpuscular Hemoglobin 30.7 pg (25-34); Mean Corpuscular Hgb Conc 34.3 g/dL (32-36); Mean Corpuscular Volume 89.6 fL (80-100); Monocytes # (auto) 0.93 K/uL (0.11-0.59); Monocytes % (auto) 10.8 %; Neutrophils # (auto) 6.63 K/uL (1.4-6.5); Neutrophils % (auto) 76.7 %; Platelet Count 158 K/uL (130-400); RDW Coefficient of Variation 13.1 % (11.5-14.5); RDW Standard Deviation 42.7 fL (36.4-46.3); Red Blood Count 4.23 M/uL (4.7-6.1); White Blood Count 8.64 K/uL (4.8-10.8)
[2019-05-06] MEDS: SODIUM CHLORIDE 0.9% 1000ML 1,000 ML IV SCH (07:32)
[2019-05-06] MEDS: PIPERACILLIN/TAZOBACTAM 4.5 GM in DEXTROSE 5% 100 ML IV SCH ×2 (07:35→16:06)
[2019-05-06] MEDS: METFORMIN HCL 500 MG TAB PO SCH ×2 (08:26→17:49)
[2019-05-06] MEDS: TAMSULOSIN HCL 0.4 MG CAP PO SCH (08:26)
[2019-05-06] MEDS: CYANOCOBALAMIN 500 MCG TABLET (VITAMIN B-12) PO SCH (08:26)
[2019-05-06] MEDS: CHOLECALCIFEROL 1,000 UNITS TAB PO SCH (08:27)
[2019-05-06] MEDS: HYDROCODONE/ACETAMOPHEN 5/325MG TAB PO PRN ×2 (08:35→19:24)
[2019-05-06] MEDS ORDERED: DOCUSATE SODIUM 100 MG CAP PO SCH (09:00)
[2019-05-06] MEDS ORDERED: ENOXAPARIN INJ 40 MG/0.4 ML SYR SQ SCH (09:00)
--- NOTE | 2019-05-06 09:07 | Surgery Progress Note ---
Date of Service May 06, 2019 Assessment & Plan (1) Abdominal wall cellulitis: improved WBC normal continue IV abx another [address] Smalls as above. looks much better/feeling better should be able to d/c home tomorrow Subjective feels better, able to void, no fevers/chills Physical Exam Gastrointestinal (Abdomen): Inspection/Auscultation: + abdominal surgical incision (clean, dry) Percussion/Palpation: abdomen soft erythema essentially resolved Results & Data Vital Signs (Past 12 Hours) Vital Signs Temp Pulse Resp BP BP Pulse Ox 05/06/19 07:02 36.8 C 81 17 129/70 93 05/05/19 23:26 36.9 C 93 H 18 157/70 H 96 PG Care Time/CCT Total # of Minutes Spent Total Time Spent with Patient: Total time spent is greater than 50% in coordination of care (as documented) at patient's floor/unit and/or counseling patient:
[2019-05-06] MEDS: POLYETHYLENE (MIRALAX) 17 GM PACK PO SCH (09:28)
[2019-05-06] MEDS ORDERED: WARFARIN SOD 10 MG TAB PO ONE (16:00)
[2019-05-06] MEDS: CARBIDOPA/LEVODOPA 50/200MG EXT REL TAB PO SCH (22:02)
[2019-05-07] MEDS: PIPERACILLIN/TAZOBACTAM 4.5 GM in DEXTROSE 5% 100 ML IV SCH ×2 (00:24→07:26)
[2019-05-07] MEDS: CARBIDOPA/LEVODOPA 25/100MG TAB PO SCH ×3 (05:49→13:29)
[2019-05-07 05:54] LABS: Basophils # (auto) 0.02 K/uL (0-0.2); Basophils % (auto) 0.3 %; Eosinophils % (auto) 6.5 %; Hematocrit (blood only) 39.1 % (42-52); Hemoglobin 12.7 g/dL (14.0-18.0); Immature Granulocytes # (auto) 0.01 K/uL (0.00-0.02); Immature Granulocytes % (auto) 0.2 %; Lymphocytes # (auto) 1.02 K/uL (1.2-3.4); Lymphocytes % (auto) 16.5 %; Mean Corpuscular Hemoglobin 29.1 pg (25-34); Mean Corpuscular Hgb Conc 32.5 g/dL (32-36); Mean Corpuscular Volume 89.5 fL (80-100); Mean Platelet Volume 9.2 fL (7.4-10.4); Monocytes # (auto) 0.61 K/uL (0.11-0.59); Monocytes % (auto) 9.9 %; Neutrophils # (auto) 4.13 K/uL (1.4-6.5); Neutrophils % (auto) 66.6 %; Platelet Count 172 K/uL (130-400); RDW Standard Deviation 42.4 fL (36.4-46.3); Red Blood Count 4.37 M/uL (4.7-6.1); White Blood Count 6.19 K/uL (4.8-10.8)
[2019-05-07 06:32] LABS: Creatinine Clr Calc Pharmacy 92.9 ml/min; Est GFR (African American) 96.6; Est GFR (Non-African American) 83.3
--- NOTE | 2019-05-07 08:19 | Surgery Progress Note ---
Date of Service May 07, 2019 Assessment & Plan (1) Abdominal wall cellulitis: INR pending finish AM Zosyn d/c later today Subjective able to urinate, having BMs Physical Exam Gastrointestinal (Abdomen): Inspection/Auscultation: + abdominal wall ecchymosis (erythema resolved) and + abdominal surgical incision (clean, dry) Results & Data Vital Signs (Past 12 Hours) Vital Signs Temp Pulse Resp BP Pulse Ox 05/07/19 07:13 36.5 C 75 18 136/66 96 05/06/19 23:00 36.8 C 77 16 127/70 93 PG Care Time/CCT Total # of Minutes Spent Total Time Spent with Patient: Total time spent is greater than 50% in coordination of care (as documented) at patient's floor/unit and/or counseling patient:
[2019-05-07] MEDS: METFORMIN HCL 500 MG TAB PO SCH (08:39)
[2019-05-07] MEDS: TAMSULOSIN HCL 0.4 MG CAP PO SCH (08:39)
[2019-05-07] MEDS: CHOLECALCIFEROL 1,000 UNITS TAB PO SCH (08:40)
[2019-05-07] MEDS: CYANOCOBALAMIN 500 MCG TABLET (VITAMIN B-12) PO SCH (08:40)
[2019-05-07] MEDS: POLYETHYLENE (MIRALAX) 17 GM PACK PO SCH (08:41)
[2019-05-07 08:57] LABS: INR 1.9 (0.9-1.1); Prothrombin Time 18.4 Seconds (9.0-12.0)
--- NOTE | 2019-05-07 13:19 | Discharge Summary ---
Date of Service May 07, 2019 Admission HPI Per Admitting Provider pt known to me as I had just repaired a ventral hernia 2 days ago. now with large area of erythema around incision. no drainage. low grade fever at home. only other issue is mild urinary hesitancy since surgery. 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 Discharge Exam awake/alert Gastrointestinal (Abdomen) Inspection/Auscultation: + abdominal wall ecchymosis and + abdominal surgical incision (c/d/i with dermabond overtop) abdominal wall cellulitis resolved Discharge Data Allergies Allergy/AdvReac Type Severity Reaction Status Date / Time Bactrim Allergy Unknown Unknown Verified 11/14/17 11:39 Cipro Allergy Unknown Unknown Verified 11/14/17 11:39 ciprofloxacin Allergy Unknown Unknown Verified 05/05/19 08:30 niacin Allergy Unknown "SHOWED Verified 05/05/19 08:30 WHAT LOOKED LIKE A TUMOR ON MY LIVER" paroxetine Allergy Unknown UNKNOWN Verified 05/05/19 08:30 sulfamethoxazole Allergy Unknown Unknown Verified 05/05/19 08:30 trimethoprim Allergy Unknown Unknown Verified 05/05/19 08:30 Vkpsjns-Zra-Cic Reductase AdvReac Unknown BONE ACHES Verified 05/05/19 08:30 Inhibitor AND MUSCLE ACHES Consultations 05/05/19 09:46 ED Decision to Admit Stat Hospital Course (1) Abdominal wall cellulitis: This is a 74yM who is recently s/p an open ventral hernia repair on with Dr. Smalls who presented to the ED on POD#2 (05/05) with low grade fevers and rena-wound redness concerning for cellulitis. In the ED patient's WBC 11.8. Patient was admitted under general surgery for treatment of abdominal wall cellulitis. He was started on IV Zosyn and area of erythema was marked. Patient was admitted from 05/05/19 through 05/07/19 and area of cellulitis resolved. Patient was also on a lovenox bridge to coumadin waiting for his INR to return to goal (2-3). On 05/07 his INR was 1.9 and he was instructed to take one more dose of lovenox and continue his coumadin dosing as previously discussed. On day of discharge patient's WBC normalized (6.1) and he was afebrile for >24 hours. He will be discharged on a 10 day course of Augmentin to complete. He was discharged to home on 05/07/19 with instructions to follow up in clinic in 7-10 days. Total Time Total Time Spent Total Time Spent (In Minutes): 15 Discharge Plan Discharge Items Patient Disposition: Home - Self-Care Reason For Visit: S/P VENTRAL HERNIA REPAIR Discharge Diagnosis: hernia repair Activity: As commented below Lifting: No more than 10 pounds Bathing: No limitations Driving/Machine Use: do not resume driving while taking narcotics for pain Non-emergency contact: Surgeon Call non-emergency contact if: you have any medication questions, your pain is not controlled, you have a fever, your temperature is above 101.5 and your wound has increased redness Follow-up/Referrals: Jasvir Borjas MD [Primary Care Provider] - Enoc Smalls DO [Surgeon] - (In 7-10 days as planned) Diet: Regular Addtl Attending Provider Instructions: Take one more dose of Lovenox today (05/07/19) then stop. Resume Coumadin dosing as otherwise previously discussed. Pending Studies at Discharge: No Stand-Alone Forms: My [facility] Medications and DC Order Prescriptions: New amoxicillin-pot clavulanate [Augmentin] 875-125 mg tablet 1 tab PO BID Qty: 20 RF: 0 tamsulosin [Flomax] 0.4 mg capsule 0.4 mg PO DAILY Qty: 10 RF: 0 Continued cholecalciferol (vitamin D3) 5,000 unit capsule 6,000 units PO DAILY RF: 0 metformin 500 mg tablet 250 mg PO BID RF: 0 docusate sodium 100 mg capsule 100 mg PO Q OTHER DAY RF: 0 carbidopa-levodopa [Sinemet] 25-100 mg tablet 1 tab PO QID RF: 0 cyanocobalamin (vitamin B-12) 1,000 mcg capsule 1,000 mcg PO DAILY RF: 0 carbidopa-levodopa [Sinemet CR] 50-200 mg tablet extended release 1 tab PO HS Qty: 60 RF: 2 alprazolam 0.5 mg tablet 0.5 mg PO TID PRN (Reason: ANXIETY, PTSD) Qty: 90 RF: 0 amoxicillin 500 mg capsule 2,000 mg PO UD PRN (Reason: PRE DENTAL) Qty: 4 RF: 0 rosuvastatin 5 mg Tablet 2.5 mg PO 2XWK RF: 0 warfarin 5 mg tablet See Rx Instructions PO UD Qty: 0 RF: 0 enoxaparin 40 mg/0.4 mL syringe 0.4 mg subcut DAILY RF: 0 hydrocodone-acetaminophen [[place]] 5-325 mg tablet 1 - 2 tab PO UD PRN (Reason: pain, for initial therapy. Max 8 per day) RF: 0 Discharge Orders: Discharge Order (Routine); Ordered 05/07/19 Ordered By: Seema Live/Other Patient Handouts: Diabetes Resources, Diabetes Type 2 Coping, Diabetes Shopping Preparing Meals, Surgery Hernia Repair, ED Retention Urinary Male Admission Data Admit Date/Time: 05/05/19 10:39 Attending Provider: Enoc Smalls Admit Provider: Enoc Smalls Primary Care Provider: Jasvir Borjas Other Providers: Enoc Smalls Other Interventions: Discharge Summary Assessment (RN) Last Done: 05/07/19 12:05 DC Date/Time DO NOT enter until pt leaves facility: 05/07/19 14:33
[2019-05-07] MEDS ORDERED: WARFARIN SOD 7.5 MG TAB PO SCH (16:00)
[2019-05-08] MEDS ORDERED: ROSUVASTATIN CALCIUM 5 MG TAB PO SCH (08:00)
--- NOTE | 2019-05-08 13:32 | Coding Query ---
CODING QUERY To promote full compliance with coding requirements relating to patient care, provider participation is requested in all cases of manager of health uncertainty. Please assist us with the question(s) below: Coding Question(s): There is documentation of Abdominal Wall Cellulitis and history of Ventral Hernia Repair. Please specify below, in your clinical opinion. (x ) Abdominal Wall Cellulitis is a Postoperative Complication of Infection ( ) Abdominal Wall Cellulitis is NOT a Postoperative Complication of Infection ( ) Abdominal Wall Cellulitis is Other: Please Specify Physician's Response(s): Thank you Kristie Vargas Principal Diagnosis: "that condition established after study, to be chiefly responsible for occasioning the admission of the patient to the hospital for care." Co-Existing Principal Diagnosis: "when two or more diagnoses equally meet the criteria for principal diagnosis as determined by the circumstances of admission, diagnostic work up, and/or therapy provided, and the Alphabetic Index, Tabular List, or another coding guideline does not provide sequencing direction, any one of the diagnoses may be sequenced first." "When the physician has documented what appears to be a current diagnosis in the body of the record, but has not included the diagnosis in the final diagnostic statement, the physician should be asked whether the diagnosis should be added." (Source Coding Clinic 2 QTR90. p3-4) [place]
== END 2019-05-07 14:33 | disposition home or self-care (01) | DRG 857 ==
LOC: ED 07:58 → 3W 10:35

== ENCOUNTER 2020-11-23 15:00 | Observation (INO) ==
--- NOTE | 2020-11-23 15:13 | Emergency Department Note ---
Impression & Plan Atrial fibrillation with RVR, Acute dyspnea ED Provider Note NAME: BALTAZAR LISA AGE: 75 SEX: M : 1945 ARRIVES VIA: Walk-In INFORMANT: Patient, ED PROVIDER(S): Kevin Jean MD Chief Complaint: Shortness of breath HPI: Patient did present with shortness of breath that began around 1 PM. Patient denies cough fevers or chills. The patient states that he did have a recent cardiac catheterization at [facility] 5 days ago. Was told that he did not require a stent and had nonobstructive CAD. The patient states he was told that he should begin taking metoprolol which he was to take today but has not done so. The patient is anticoagulated for prior history of PE. Patient denies any hemoptysis. The patient has had some slight left pedal edema but this goes away with elevation. The patient denies any calf pain. The patient does have history of Parkinson's. The patient is on anticoagulation but had stopped it for his procedure but recently resumed and was seen by Dr. Mendoza 2 days ago and had a therapeutic INR. ROS: See HPI for pertinent positives and negatives. A total of 10 systems were re viewed and otherwise negative. Past medical history: See below Surgical history: See below Social history: See below Physical Exam: GENERAL: Well appearing, well nourished, NAD, non-toxic. EYE EXAM: Normal conjunctiva. PERRL, no anisocoria and EOM's grossly intact w/o pain. NECK: Supple, no nuchal rigidity, no adenopathy, non-tender. No signs of meningismus. LUNGS: Clear to auscultation. Normal chest wall mechanics. HEART: Tachycardic and irregularly irregular, no MRG. ABDOMEN: Abdomen soft, non-tender, normo-active bowel sounds, no masses, no rebound or guarding. BACK: No CVA TTP. SKIN: No rashes and no bruising. UPPER EXTREMITIES: Upper extremities are grossly normal. LOWER EXTREMITIES: Grossly normal, no edema. Negative Homans' sign bilaterally. NEURO EXAM: A&O x3, cranial nerves II-XII grossly intact, normal speech, moves all 4 extremities on command w/o issue. Differential diagnoses: Reactive airway disease, pneumonia, pneumothorax, COPD, CHF, infections, cardiac ischemia, pulmonary embolism, musculoskeletal, gastrointestinal, as well as other pathologies. Course: Patient was seen and evaluated the bedside. Full history physical exam was performed. EKG interpreted by me Indication: Shortness of breath A. fib with RVR, rate of 122, normal QRS duration, normal axis, Q-wave in lead III no obvious ST changes. Imaging Studies: See below Cardiac monitoring: An order was placed for continuous cardiac monitoring. The monitor shows a rate of 122 with irregular irregular rhythm. MDM: Patient did present with concern for shortness of breath. The patient did a b ladder complete along with an EKG and CT angiography of the chest given the patient's shortness of breath and associated history of PE. Patient also had been recently taken off of his anticoagulation for his procedure. EKG does show A. fib and the patient states that he has no history of atrial fibrillation. Given his history with a recent catheterization patient was treated after his angiography showed no evidence of PE. Patient was given Lopressor 5 mg x 3 along with IV fluids. Patient did have improvement in symptoms as well as tachycardia. Patient is therapeutic on his anticoagulation with an INR greater than 2. Patient has normal white count H&H and platelet count. Covid test is negative. Troponin not detectable. I did speak with the on-call hospitalist Dr. Ortiz and the patient was admitted to the medicine service. Critical Care: I have personally spent 47 minutes of critical care time in direct management of this patient. This includes bedside care, interpretation of diagnostic studies, and testing, discussion with consultants, patient, and family members, and other require inpatient management activities. This 47 minutes is in excess of all separately billable procedures. Past Med/Surg History Medical History Abdominal pain Basal cell carcinoma of skin Bilateral pulmonary embolism BPH (benign prostatic hyperplasia) CAD (coronary artery disease) Chronic constipation Colon polyps Degenerative joint disease of left hip Diabetes DVT (deep venous thrombosis) Dyspnea on exertion Esophageal dyskinesia PT REPORTS MILD TROUBLE WITH SWALLOWING - PLANS TO DISCUSS WITH [facility] AT NEXT VISIT History of DVT (deep vein thrombosis) 2014 History of kidney stones History of Orange cell carcinoma History of panic attacks History of pulmonary embolus (PE) 2014 BILATERAL WITH DVT History of right hip replacement Irritable bowel syndrome Lightheadedness Lower extremity pain Memory loss or impairment Muscle cramps Neuropathy Parkinson's disease Posttraumatic stress disorder Sleep apnea NO DEVICE Spinal stenosis Thyroid nodule Urinary incontinence Surgical History H/O ventral hernia repair (05/03/19) Open Ventral Hernia Repair Dr. Smalls 05/03/19 History of appendectomy 1978 History of biopsy THRYOID History of cardiac cath X2 2007 ..."SIGNIFICANT NARROWING" - NO STENT - [place] 2 YRS AGO..."ALL KINDS OF SYMPTOMS" - NO STENT - [place] History of colonoscopy History of inguinal hernia repair History of lithotripsy History of lymph node biopsy History of sinus surgery History of surgery FOR BAUTISTA SKIN CA History of total right hip replacement Family History Father Diabetes Heart disease Mother Colorectal cancer Cancer bile duct carcinoma Grandfather (Maternal) Dementia Grandmother (Paternal) Heart disease Grandfather (Paternal) Heart disease Grandmother (Maternal) Kidney failure Denies family history of Ovarian cancer Prostate cancer Breast cancer Lung cancer Social History Smoking Status: Former smoker Age Started Using Tobacco: 19; Age Quit Using Tobacco: 44; packs per day: 1; Years Smoked: 25; Number of Years Since Quit: 31; Second Hand Exposure: Yes; Hx Alcohol Use: No Hx Substance Use: No Preferred Language: Turkmen Communication Ability: Effective Visual Impairment: Limited Hearing Ability: Normal 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: No Beliefs That Will Affect Care: None marital status: Current Living Situation: Spouse current occupational status: retired Feels Safe at Home: Yes Childhood Exposure to Second-Hand Smoke: No caffeine: Yes Dental Care, Regularly: Yes Physical Activity Frequency: 3-4 Times per Week Physical Activity Frequency Comment: typically does- has not been with recent hernia Seatbelt Use: always Sunscreen Use: Yes Assistive Devices: None Allergies Allergies Allergy/AdvReac Type Severity Reaction Status Date / Time ciprofloxacin Allergy Unknown Unknown Verified 11/23/20 15:57 niacin Allergy Unknown "SHOWED Verified 11/23/20 15:57 WHAT LOOKED LIKE A TUMOR ON MY LIVER" paroxetine Allergy Unknown UNKNOWN Verified 11/23/20 15:57 sulfamethoxazole Allergy Unknown Unknown Verified 11/23/20 15:57 trimethoprim Allergy Unknown Unknown Verified 11/23/20 15:57 [id number]-Nxf Reductase AdvReac Unknown BONE ACHES Verified 11/23/20 15:57 Inhibitor AND MUSCLE ACHES Home Meds Home Medications Medication Instructions Recorded Confirmed cyanocobalamin (vitamin B-12) 1,000 mcg PO DAILY 09/04/18 11/23/20 1,000 mcg capsule amoxicillin 500 mg capsule 2,000 mg PO UD PRN #4 cap 12/12/18 11/23/20 carbidopa 25 mg-levodopa 100 mg 1 tab PO QID 12/27/18 11/23/20 tablet docusate sodium 100 mg capsule 100 mg PO Q OTHER DAY PRN cap 05/10/19 11/23/20 cholecalciferol (vitamin D3) 6,000 unit PO DAILY 05/21/19 11/23/20 [Vitamin D3] metformin 500 mg tablet 250 mg PO BID tab 03/04/20 11/23/20 rosuvastatin 5 mg tablet 2.5 mg PO DAILY tab 03/04/20 11/23/20 amlodipine 2.5 mg tablet 2.5 mg PO DAILY 11/13/20 11/23/20 metoprolol succinate 25 mg 25 mg PO DAILY 11/13/20 11/23/20 tablet,extended release 24 hr carbidopa-levodopa 1 tab PO HS 11/23/20 11/23/20 Previous Rx's Medication Instructions Recorded ketoconazole 2 % shampoo 1 applic TOPICAL .COMPLEX #120 ml 06/26/20 warfarin 5 mg tablet See Rx Instructions PO UD #130 tab 07/22/20 alprazolam 0.5 mg tablet 0.5 mg PO TID PRN #270 tab 11/19/20 Results & Data (ED) Vital Signs Vital Signs - 24 hr 11/23/20 15:06 11/23/20 15:12 11/23/20 15:16 Temperature 36.6 C Temperature Source Temporal Artery Scan Pulse Rate 124 H 124 H Pulse Rate [Apical] 124 H Pulse Rate from SpO2 Sensor 114 H Pulse Rhythm [Apical] Irregular Respiratory Rate 22 16 Blood Pressure 132/81 137/87 Blood Pressure [Right Arm] 137/87 Blood Pressure Mean 98 103 Blood Pressure Mean [Right Arm] 103 Pulse Oximetry 95 96 Oxygen Delivery Method Room Air Room Air Room Air Sepsis Recent Fever Within 48 Hours No Sepsis New/Unexplained Change in Mental Status N/A Sepsis Action Taken by Nursing No Action Required 11/23/20 15:22 11/23/20 15:30 11/23/20 15:36 Temperature Temperature Source Pulse Rate 129 H 138 H 128 H Pulse Rate [Apical] Pulse Rate from SpO2 Sensor 131 H 132 H 120 H Pulse Rhythm [Apical] Respiratory Rate 21 20 14 Blood Pressure 141/99 H Blood Pressure [Right Arm] Blood Pressure Mean 113 Blood Pressure Mean [Right Arm] Pulse Oximetry 95 96 96 Oxygen Delivery Method Sepsis Recent Fever Within 48 Hours Sepsis New/Unexplained Change in Mental Status Sepsis Action Taken by Nursing 11/23/20 15:40 11/23/20 15:45 11/23/20 15:50 Temperature Temperature Source Pulse Rate 129 H 131 H 129 H Pulse Rate [Apical] Pulse Rate from SpO2 Sensor 120 H 131 H 124 H Pulse Rhythm [Apical] Respiratory Rate 15 15 16 Blood Pressure 109/91 Blood Pressure [Right Arm] Blood Pressure Mean 97 Blood Pressure Mean [Right Arm] Pulse Oximetry 95 95 93 Oxygen Delivery Method Sepsis Recent Fever Within 48 Hours Sepsis New/Unexplained Change in Mental Status Sepsis Action Taken by Nursing 11/23/20 16:14 11/23/20 16:15 11/23/20 16:20 Temperature Temperature Source Pulse Rate 124 H 122 H Pulse Rate [Apical] Pulse Rate from SpO2 Sensor 101 H 130 H 128 H Pulse Rhythm [Apical] Respiratory Rate 12 19 Blood Pressure 132/91 Blood Pressure [Right Arm] Blood Pressure Mean 104 Blood Pressure Mean [Right Arm] Pulse Oximetry 95 94 94 Oxygen Delivery Method Sepsis Recent Fever Within 48 Hours Sepsis New/Unexplained Change in Mental Status Sepsis Action Taken by Nursing 11/23/20 16:30 11/23/20 16:31 11/23/20 16:40 Temperature Temperature Source Pulse Rate 104 H 110 H 115 H Pulse Rate [Apical] Pulse Rate from SpO2 Sensor 104 H 106 H 111 H Pulse Rhythm [Apical] Respiratory Rate 18 18 19 Blood Pressure 111/74 Blood Pressure [Right Arm] Blood Pressure Mean 86 Blood Pressure Mean [Right Arm] Pulse Oximetry 93 93 96 Oxygen Delivery Method Sepsis Recent Fever Within 48 Hours Sepsis New/Unexplained Change in Mental Status Sepsis Action Taken by Nursing 11/23/20 16:46 11/23/20 16:50 11/23/20 16:58 Temperature Temperature Source Pulse Rate 118 H 110 H 111 H Pulse Rate [Apical] Pulse Rate from SpO2 Sensor 104 H 102 H 95 H Pulse Rhythm [Apical] Respiratory Rate 22 16 20 Blood Pressure 108/78 109/68 Blood Pressure [Right Arm] Blood Pressure Mean 88 81 Blood Pressure Mean [Right Arm] Pulse Oximetry 95 95 94 Oxygen Delivery Method Sepsis Recent Fever Within 48 Hours Sepsis New/Unexplained Change in Mental Status Sepsis Action Taken by Nursing 11/23/20 17:00 11/23/20 17:10 11/23/20 17:16 Temperature Temperature Source Pulse Rate 122 H 108 H 119 H Pulse Rate [Apical] Pulse Rate from SpO2 Sensor 104 H 100 H 104 H Pulse Rhythm [Apical] Respiratory Rate 19 18 22 Blood Pressure 93/70 L 111/76 Blood Pressure [Right Arm] Blood Pressure Mean 77 87 Blood Pressure Mean [Right Arm] Pulse Oximetry 94 94 94 Oxygen Delivery Method Sepsis Recent Fever Within 48 Hours Sepsis New/Unexplained Change in Mental Status Sepsis Action Taken by Nursing 11/23/20 17:20 11/23/20 17:30 11/23/20 17:40 Temperature Temperature Source Pulse Rate 107 H 110 H 109 H Pulse Rate [Apical] Pulse Rate from SpO2 Sensor 107 H 108 H 104 H Pulse Rhythm [Apical] Respiratory Rate 18 19 21 Blood Pressure 121/75 Blood Pressure [Right Arm] Blood Pressure Mean 90 Blood Pressure Mean [Right Arm] Pulse Oximetry 94 97 95 Oxygen Delivery Method Sepsis Recent Fever Within 48 Hours Sepsis New/Unexplained Change in Mental Status Sepsis Action Taken by Nursing 11/23/20 17:45 11/23/20 17:50 Temperature Temperature Source Pulse Rate 114 H 112 H Pulse Rate [Apical] Pulse Rate from SpO2 Sensor 104 H 107 H Pulse Rhythm [Apical] Respiratory Rate 28 H 29 H Blood Pressure 117/76 Blood Pressure [Right Arm] Blood Pressure Mean 89 Blood Pressure Mean [Right Arm] Pulse Oximetry 93 95 Oxygen Delivery Method Sepsis Recent Fever Within 48 Hours Sepsis New/Unexplained Change in Mental Status Sepsis Action Taken by Snf Medications Current Medication List: was personally reviewed by me Laboratory Data Attestation: I reviewed the patient's lab results. Result diagrams: 11/23/20 15:35 11/23/20 15:35 Lab Results 11/23/20 11/23/20 11/23/20 Range/Units 15:35 15:35 15:35 WBC 8.90 (4.8-10.8) K/uL RBC 4.99 (4.7-6.1) M/uL Hgb 15.0 (14.0-18.0) g/dL POC Hgb (14.0-18.0) g/dl Hct 43.2 (42-52) % POC Hct (42-52) % MCV 86.6 (80-100) fL MCH 30.1 (25-34) pg MCHC 34.7 (32-36) g/dL RDW Std Deviation 41.4 (36.4-46.3) fL RDW Coeff of Matthew 13.0 (11.5-14.5) % Plt Count 216 (130-400) K/uL MPV 9.7 (7.4-10.4) fL Immature Gran % (Auto) 0.1 % Neut % (Auto) 81.5 % Lymph % (Auto) 9.0 % Mccone % (Auto) 8.1 % Eos % (Auto) 1.0 % Baso % (Auto) 0.3 % Neut # (Auto) 7.25 H (1.4-6.5) K/uL Lymph # (Auto) 0.80 L (1.2-3.4) K/uL Mccone # (Auto) 0.72 H (0.11-0.59) K/uL Eos # (Auto) 0.09 (0-0.5) K/uL Baso # (Auto) 0.03 (0-0.2) K/uL Immature Gran # (Auto) 0.01 (0.00-0.02) K/uL PT 23.8 H (9.0-12.0) Seconds INR 2.5 H (0.9-1.1) APTT 34.0 H (21.0-31.0) Seconds PTT Ratio 1.3 POC Sodium (135-144) mmol/L Sodium 140 (136-145) mmol/L POC Potassium (3.3-5.0) mmol/L Potassium 3.9 (3.5-5.1) mmol/L POC Chloride (101-112) mmol/L Chloride 106 (98-107) mmol/L Carbon Dioxide 25 (21-32) mmol/L POC Total CO2 (24-31) mmol/L Anion Gap 10.0 (3-11) POC Anion Gap (16-25) mmol/L POC BUN (7-18) mg/dl BUN 12 (7-18) mg/dl Creatinine 0.87 (0.6-1.4) mg/dl POC Creatinine (0.6-1.3) mg/dl Est Cr Clr Drug Dosing 94.2 ml/min Est GFR ( Amer) 98.5 Est GFR (Non-Af Amer) 85.0 BUN/Creatinine Ratio 13.4 (10-20) Glucose 105 H (70-99) mg/dl POC Glucose (other) (70-99) mg/dl Calcium 9.1 (8.5-10.1) mg/dl POC Ioniz Calcium Mariama (1.12-1.32) mmol/l Total Bilirubin 0.5 (0.2-1) mg/dl AST 21 (15-37) U/L ALT 8 L (12-78) U/L Alkaline Phosphatase 49 (45-117) U/L Troponin I < 0.015 (0-0.045) ng/ml Total Protein 7.2 (6.4-8.2) gm/dl Albumin 3.7 (3.4-5.0) gm/dl Globulin 3.5 (2.5-4.0) gm/dl Albumin/Globulin Ratio 1.1 (0.9-2) Lipase 136 (73-393) U/L Specimen Hemolysis COVID-19 Eval Order SARS-CoV-2 (PCR) (Negative) Influenza Type A (PCR) (Neg) Influenza Type B (PCR) (Neg) RSV (RT-PCR) (Neg) 11/23/20 11/23/20 11/23/20 Range/Units 15:40 15:40 15:46 WBC (4.8-10.8) K/uL RBC (4.7-6.1) M/uL Hgb (14.0-18.0) g/dL POC Hgb 14.6 (14.0-18.0) g/dl Hct (42-52) % POC Hct 43 (42-52) % MCV (80-100) fL MCH (25-34) pg MCHC (32-36) g/dL RDW Std Deviation (36.4-46.3) fL RDW Coeff of Matthew (11.5-14.5) % Plt Count (130-400) K/uL MPV (7.4-10.4) fL Immature Gran % (Auto) % Neut % (Auto) % Lymph % (Auto) % Mccone % (Auto) % Eos % (Auto) % Baso % (Auto) % Neut # (Auto) (1.4-6.5) K/uL Lymph # (Auto) (1.2-3.4) K/uL Mccone # (Auto) (0.11-0.59) K/uL Eos # (Auto) (0-0.5) K/uL Baso # (Auto) (0-0.2) K/uL Immature Gran # (Auto) (0.00-0.02) K/uL PT (9.0-12.0) Seconds INR (0.9-1.1) APTT (21.0-31.0) Seconds PTT Ratio POC Sodium 140 (135-144) mmol/L Sodium (136-145) mmol/L POC Potassium 4.1 (3.3-5.0) mmol/L Potassium (3.5-5.1) mmol/L POC Chloride 104 (101-112) mmol/L Chloride (98-107) mmol/L Carbon Dioxide (21-32) mmol/L POC Total CO2 25 (24-31) mmol/L Anion Gap (3-11) POC Anion Gap 15.0 L (16-25) mmol/L POC BUN 12 (7-18) mg/dl BUN (7-18) mg/dl Creatinine (0.6-1.4) mg/dl POC Creatinine 0.8 (0.6-1.3) mg/dl Est Cr Clr Drug Dosing ml/min Est GFR ( Amer) Est GFR (Non-Af Amer) BUN/Creatinine Ratio (10-20) Glucose (70-99) mg/dl POC Glucose (other) 108 H (70-99) mg/dl Calcium (8.5-10.1) mg/dl POC Ioniz Calcium Mariama 1.16 (1.12-1.32) mmol/l Total Bilirubin (0.2-1) mg/dl AST (15-37) U/L ALT (12-78) U/L Alkaline Phosphatase (45-117) U/L Troponin I (0-0.045) ng/ml Total Protein (6.4-8.2) gm/dl Albumin (3.4-5.0) gm/dl Globulin (2.5-4.0) gm/dl Albumin/Globulin Ratio (0.9-2) Lipase (73-393) U/L Specimen Hemolysis COVID-19 Eval Order [facility]FluRsv at [facility] SARS-CoV-2 (PCR) NEGATIVE (Negative) Influenza Type A (PCR) Negative (Neg) Influenza Type B (PCR) Negative (Neg) RSV (RT-PCR) Negative (Neg) Administered Medications Metoprolol Tartrate (Metoprolol Tartrate 1 Mg/Ml Vial) 5 mg IV Q5M PRN PRN Reason: Tachycardia Stop: 12/23/20 16:08 Last Admin: 11/23/20 16:18 Dose: 5 mg Documented by: [id number] Discontinued Medications Carbidopa/Levodopa (Carbidopa/Levodopa 25/100mg Tab) 1 tab PO NOW STA Stop: 11/23/20 17:56 Last Admin: 11/23/20 18:01 Dose: 1 tab Documented by: [id number] Sodium Chloride (Nss 1000ml) 500 mls @ 999 mls/hr IV .Q31M ONE Stop: 11/23/20 16:39 Last Infusion: 11/23/20 17:09 Dose: 999 mls/hr Documented by: [id number] Admin: 11/23/20 16:18 Dose: 999 mls/hr Documented by: [id number] Ioversol (Optiray 350 500ml) 119 ml IV ONCE ONE Stop: 11/23/20 16:05 Last Admin: 11/23/20 16:05 Dose: 119 ml Documented by: [id number] Metoprolol Tartrate (Metoprolol Tartrate 25 Mg Tab) 25 mg PO ONE STA Stop: 11/23/20 17:38 Last Admin: 11/23/20 18:01 Dose: 25 mg Documented by: [id number] Metoprolol Tartrate (Metoprolol Tartrate 1 Mg/Ml Vial) 5 mg IV NOW STA Stop: 11/23/20 17:48 Last Admin: 11/23/20 18:01 Dose: 5 mg Documented by: [id number] Imaging Data Radiologist's Impression: Chest CTA 11/23/20 15:12 CT angio chest PE protocol CT DOSE: 753.47 mGy.cm HISTORY: 75 years-old Male with Chest Pain, eval for PE. Acute atypical chest pain TECHNIQUE: Multiple CTA images of the chest were obtained after the intravenous administration of 119 ml Optiray. Coronal and sagittal MIPS were obtained from the axial data set and were submitted for review. All measurements were obtained according to NASCET criteria. A dose lowering technique was utilized adhering to the principles of ALARA. COMPARISON: Chest radiograph of same day, CTA chest 07/29/2016 FINDINGS: CTA: Mild cardiomegaly. No pericardial effusion. Extensive coronary artery calcifications. Moderate mixed plaque of the thoracic aorta without aneurysm or dissection. Patency of the imaged great vessels. The pulmonary artery is opacified to level the proximal subsegmental branches and demonstrates no filling defects to suggest thromboembolic disease. CT CHEST: 2.0 cm hypodense left thyroid nodules unchanged from 2017. No adenopathy. No pneumothorax, pleural effusion or airspace consolidation. Mild dependent bibasilar groundglass densities suggestive of atelectasis. Mild subpleural r eticular opacities of the left upper lobe and lingula are similar to comparison suggestive of mild fibrosis. There are no suspicious pulmonary nodules. Central airways are patent. No pneumoperitoneum. Hepatic steatosis. 2.5 x 1.8 cm lesion of the left adrenal gland containing calcification and macroscopic fat suggestive of an adrenal myolipoma, increased in size from comparison where it measured up to 2.1 cm. Unremarkable soft tissues. There is no acute fracture. IMPRESSION: 1. No pulmonary emboli. 2. No pleural effusion, adenopathy or airspace consolidation. 3. Hepatic steatosis. ACT 112: Negative or not required by law. The above report was generated using voice recognition software. It may contain grammatical, syntax or spelling errors. Electronically signed by: Roderick Bermeo M.D. 11/23/2020 4:17 PM Chest X-Ray 11/23/20 15:12 XR chest 1V portable HISTORY: 75 years-old Male Chest Pain . Acute atypical chest pain COMPARISON: Chest radiograph 05/21/2019, CTA chest 11/23/2020 TECHNIQUE: Portable AP view of the chest. FINDINGS: Cardiac silhouette is mildly enlarged. No pneumothorax, pleural effusion or overt pulmonary edema. Minimal bibasilar atelectasis. Mild chronic interstitial coarsening of the left midlung. Degenerative changes of the shoulders and spine. IMPRESSION: No acute process. ACT 112: Negative or not required by law. The above report was generated using voice recognition software. It may contain grammatical, syntax or spelling errors. Electronically signed by: Roderick Bermeo M.D. 11/23/2020 4:10 PM Discharge Plan Visit Data Chief Complaint: Chest Pain Stated Complaint: CHEST PAIN ED Provider: Kevin Jean Discharge Problem: Atrial fibrillation with RVR, Acute dyspnea Forms Stand Alone Forms: My [facility] Prescriptions Prescriptions: No Action carbidopa-levodopa [Sinemet] 25-100 mg tablet 1 tab PO QID RF: 0 docusate sodium 100 mg capsule 100 mg PO Q OTHER DAY PRN (Reason: Constipation) RF: 0 metformin 500 mg tablet 250 mg PO BID RF: 0 cyanocobalamin (vitamin B-12) 1,000 mcg capsule 1,000 mcg PO DAILY RF: 0 warfarin 5 mg tablet See Rx Instructions PO UD Qty: 130 RF: 2 amlodipine 2.5 mg tablet 2.5 mg PO DAILY RF: 0 metoprolol succinate 25 mg tablet extended release 24 hr 25 mg PO DAILY RF: 0 alprazolam 0.5 mg tablet 0.5 mg PO TID PRN (Reason: ANXIETY, PTSD) Qty: 270 RF: 0 ketoconazole 2 % shampoo 1 applic topical .COMPLEX Qty: 120 RF: 3 amoxicillin 500 mg capsule 2,000 mg PO UD PRN (Reason: PRE DENTAL) Qty: 4 RF: 0 rosuvastatin 5 mg tablet 2.5 mg PO DAILY RF: 0 cholecalciferol (vitamin D3) [Vitamin D3] 2,000 unit Tablet 6,000 unit PO DAILY RF: 0 carbidopa-levodopa 50-200 mg tablet extended release 1 tab PO HS RF: 0
[2020-11-23 15:56] LABS: Basophils # (auto) 0.03 K/uL (0-0.2); Basophils % (auto) 0.3 %; Eosinophils # (auto) 0.09 K/uL (0-0.5); Hematocrit (blood only) 43.2 % (42-52); Immature Granulocytes # (auto) 0.01 K/uL (0.00-0.02); Immature Granulocytes % (auto) 0.1 %; Mean Corpuscular Hemoglobin 30.1 pg (25-34); Mean Corpuscular Hgb Conc 34.7 g/dL (32-36); Mean Corpuscular Volume 86.6 fL (80-100); Mean Platelet Volume 9.7 fL (7.4-10.4); Monocytes # (auto) 0.72 K/uL (0.11-0.59); Monocytes % (auto) 8.1 %; Neutrophils # (auto) 7.25 K/uL (1.4-6.5); Neutrophils % (auto) 81.5 %; Platelet Count 216 K/uL (130-400); RDW Standard Deviation 41.4 fL (36.4-46.3); Red Blood Count 4.99 M/uL (4.7-6.1)
[2020-11-23 15:58] LABS: iSTAT Creatinine 0.8 mg/dl (0.6-1.3); iSTAT Hemoglobin 14.6 g/dl (14.0-18.0); iSTAT Ionized Calcium 1.16 mmol/l (1.12-1.32); iSTAT Potassium 4.1 mmol/L (3.3-5.0)
[2020-11-23] MEDS ORDERED: OPTIRAY 350 500ml IV ONE (16:04)
[2020-11-23] MEDS ORDERED: SODIUM CHLORIDE 0.9% 1000ML 500 ML IV ONE (16:09)
[2020-11-23] MEDS ORDERED: METOPROLOL TARTRATE 1 MG/ML VIAL IV PRN (16:09)
[2020-11-23 16:11] LABS: INR 2.5 (0.9-1.1); Partial Thromboplastin Ratio 1.3; Prothrombin Time 23.8 Seconds (9.0-12.0)
--- NOTE | 2020-11-23 16:11 | XRay Report ---
XR chest 1V portable HISTORY: 75 years-old Male Chest Pain . Acute atypical chest pain COMPARISON: Chest radiograph 05/21/2019, CTA chest 11/23/2020 TECHNIQUE: Portable AP view of the chest. FINDINGS: Cardiac silhouette is mildly enlarged. No pneumothorax, pleural effusion or overt pulmonary edema. Mi nimal bibasilar atelectasis. Mild chronic interstitial coarsening of the left midlung. Degenerative c hanges of the shoulders and spine. IMPRESSION: No acute process. ACT 112: Negative or not required by law. The above report was generated using voice recognition software. It may contain grammatical, syntax o r spelling errors. Electronically signed by: Roderick Bermeo M.D. 11/23/2020 4:10 PM
--- NOTE | 2020-11-23 16:18 | CT Scan Report ---
CT angio chest PE protocol CT DOSE: 753.47 mGy.cm HISTORY: 75 years-old Male with Chest Pain, eval for PE. Acute atypical chest pain TECHNIQUE: Multiple CTA images of the chest were obtained after the intravenous administration of 119 ml Optiray. Coronal and sagittal MIPS were obtained from the axial data set and were submitted for review. All measurements were obtained according to NASCET criteria. A dose lowering technique was u tilized adhering to the principles of ALARA. COMPARISON: Chest radiograph of same day, CTA chest 07/29/2016 FINDINGS: CTA: Mild cardiomegaly. No pericardial effusion. Extensive coronary artery calcifications. Moderate mixed plaque of the thoracic aorta without aneurysm or dissection. Patency of the imaged great vessels. The pulmonary artery is opacified to level the proximal subsegmental branches and demonstrates no fillin g defects to suggest thromboembolic disease. CT CHEST: 2.0 cm hypodense left thyroid nodules unchanged from 2017. No adenopathy. No pneumothorax, pleural ef fusion or airspace consolidation. Mild dependent bibasilar groundglass densities suggestive of atelec tasis. Mild subpleural reticular opacities of the left upper lobe and lingula are similar to comparis on suggestive of mild fibrosis. There are no suspicious pulmonary nodules. Central airways are patent . No pneumoperitoneum. Hepatic steatosis. 2.5 x 1.8 cm lesion of the left adrenal gland containing calc ification and macroscopic fat suggestive of an adrenal myolipoma, increased in size from comparison w here it measured up to 2.1 cm. Unremarkable soft tissues. There is no acute fracture. IMPRESSION: 1. No pulmonary emboli. 2. No pleural effusion, adenopathy or airspace consolidation. 3. Hepatic steatosis. ACT 112: Negative or not required by law. The above report was generated using voice recognition software. It may contain grammatical, syntax o r spelling errors. Electronically signed by: Roderick Bermeo M.D. 11/23/2020 4:17 PM
[2020-11-23 16:26] LABS: Alanine Aminotransferase 8 U/L (12-78); Albumin Globulin Ratio 1.1 (0.9-2); Albumin Level 3.7 gm/dl (3.4-5.0); Alkaline Phosphatase 49 U/L (45-117); Aspartate Aminotransferase 21 U/L (15-37); BUN Creatinine Ratio 13.4 (10-20); Bilirubin,Total 0.5 mg/dl (0.2-1); Blood Urea Nitrogen 12 mg/dl (7-18); Calcium 9.1 mg/dl (8.5-10.1); Carbon Dioxide 25 mmol/L (21-32); Chloride 106 mmol/L (98-107); Creatinine Clr Calc Pharmacy 94.2 ml/min; Est GFR (African American) 98.5; Globulin 3.5 gm/dl (2.5-4.0); Glucose 105 mg/dl (70-99); Lipase 136 U/L (73-393); Potassium 3.9 mmol/L (3.5-5.1); Sodium 140 mmol/L (136-145); Total Protein 7.2 gm/dl (6.4-8.2); Troponin I < 0.015 ng/ml (0-0.045)
[2020-11-23 16:39] LABS: Influenza A virus by PCR Negative (Neg); Influenza B virus by PCR Negative (Neg); RSV by PCR Negative (Neg); SARS CoV2 RNA(COVID-19) InHosp NEGATIVE (Negative)
--- NOTE | 2020-11-23 17:26 | History & Physical Report ---
Date of Service November 23, 2020 Assessment & Plan (1) Atrial fibrillation with RVR: New onset. Not taking prescribed metoprolol prior to admission Metoprolol 5mg IV given in ER, give additional 5mg now with 25mg metoprolol tartrate. Start metoprolol succinate 50mg PO daily. Already anticoagulated chronically with warfarin for prior AR/DVTs therefore will continue this. TSH with AM labs Repeat troponin with AM labs No need to repeat TTE as recently performed cardiac catheterization (2) Coronary artery disease: Non-obstructive Continue aspirin, metoprolol, rosuvastatin (3) Hypertension: Stop amlodipine, patient not taking this yet anyway. In favor of increased metoprolol dosing as above. (4) Diabetes: HbA1C 5.8. Hold metformin during inpatient admission. (5) Parkinsonism: Continue his usual Sinemet dosing Admission and Anticipated Discharge Date Admission Date: November 23, 2020 History of Present Illness Chief Complaint: Atrial fibrillation Primary Care Provider: Jasvir Borjas MD Bisi Greer is a 75 year old male who presents to the ER with chest pain, shortness of breath and tachycardia. He reports symptoms started around 1pm. He used a pulse oximeter and his heart rate was jumping around 120-130. He reports chest pressure lasted for around 2 hours, relieved spontaneously without m edication in the ER. No radiation. He has been having recent chest discomfort which have been different to the one he had today. As part of his workup he had a positive stress test and subsequent cardiac catheterization on November 12 showing non-obstructive coronary artery disease. Following this it was recommended he start on metoprolol succinate 25mg and amlodipine 2.5mg PO but he is yet to start on these medications. In the ER EKG showed atrial fibrillation which he reports is new for him. He was given 5mg metoprolol IV which slowed his HR to 110s. He was referred to medicine for admission and ongoing management of atrial fibrillation with RVR. Allergies Allergy/AdvReac Type Severity Reaction Status Date / Time ciprofloxacin Allergy Unknown Unknown Verified 11/23/20 15:57 niacin Allergy Unknown "SHOWED Verified 11/23/20 15:57 WHAT LOOKED LIKE A TUMOR ON MY LIVER" paroxetine Allergy Unknown UNKNOWN Verified 11/23/20 15:57 sulfamethoxazole Allergy Unknown Unknown Verified 11/23/20 15:57 trimethoprim Allergy Unknown Unknown Verified 11/23/20 15:57 Fzmhzct-Mrc-Tui Reductase AdvReac Unknown BONE ACHES Verified 11/23/20 15:57 Inhibitor AND MUSCLE ACHES Home Medications Medication Instructions Recorded Confirmed Type cyanocobalamin (vitamin B-12) 1,000 mcg PO DAILY 09/04/18 11/23/20 History 1,000 mcg capsule amoxicillin 500 mg capsule 2,000 mg PO UD PRN #4 cap 12/12/18 11/23/20 History carbidopa 25 mg-levodopa 100 mg 1 tab PO QID 12/27/18 11/23/20 History tablet docusate sodium 100 mg capsule 100 mg PO Q OTHER DAY PRN cap 05/10/19 11/23/20 History cholecalciferol (vitamin D3) 6,000 unit PO DAILY 05/21/19 11/23/20 History [Vitamin D3] metformin 500 mg tablet 250 mg PO BID tab 03/04/20 11/23/20 History rosuvastatin 5 mg tablet 2.5 mg PO DAILY tab 03/04/20 11/23/20 History ketoconazole 2 % shampoo 1 applic TOPICAL .COMPLEX #120 ml 06/26/20 11/23/20 Rx warfarin 5 mg tablet See Rx Instructions PO UD #130 tab 07/22/20 11/23/20 Rx amlodipine 2.5 mg tablet 2.5 mg PO DAILY 11/13/20 11/23/20 History metoprolol succinate 25 mg 25 mg PO DAILY 11/13/20 11/23/20 History tablet,extended release 24 hr alprazolam 0.5 mg tablet 0.5 mg PO TID PRN #270 tab 11/19/20 11/23/20 Rx carbidopa-levodopa 1 tab PO HS 11/23/20 11/23/20 History Past Med/Surg History Medical History Abdominal pain Basal cell carcinoma of skin Bilateral pulmonary embolism BPH (benign prostatic hyperplasia) CAD (coronary artery disease) Chronic constipation Colon polyps Degenerative joint disease of left hip Diabetes DVT (deep venous thrombosis) Dyspnea on exertion Esophageal dyskinesia PT REPORTS MILD TROUBLE WITH SWALLOWING - PLANS TO DISCUSS WITH [facility] SPECIALIST AT NEXT VISIT History of DVT (deep vein thrombosis) 2014 History of kidney stones History of Hubbell cell carcinoma History of panic attacks History of pulmonary embolus (PE) 2015 BILATERAL WITH DVT History of right hip replacement Irritable bowel syndrome Lightheadedness Lower extremity pain Memory loss or impairment Muscle cramps Neuropathy Parkinson's disease Posttraumatic stress disorder Sleep apnea NO DEVICE Spinal stenosis Thyroid nodule Urinary incontinence Surgical History H/O ventral hernia repair (05/03/19) Open Ventral Hernia Repair Dr. Smalls 05/03/19 History of appendectomy 1978 History of biopsy THRYOID History of cardiac cath X2 2007 ..."SIGNIFICANT NARROWING" - NO STENT - [place] 2 YRS AGO..."ALL KINDS OF SYMPTOMS" - NO STENT - [place] History of colonoscopy History of inguinal hernia repair History of lithotripsy History of lymph node biopsy History of sinus surgery History of surgery FOR BAUTISTA SKIN CA History of total right hip replacement Family History Father Diabetes Heart disease Mother Colorectal cancer Cancer bile duct carcinoma Grandfather (Maternal) Dementia Grandmother (Paternal) Heart disease Grandfather (Paternal) Heart disease Grandmother (Maternal) Kidney failure Denies family history of Ovarian cancer Prostate cancer Breast cancer Lung cancer Social History Smoking Status: Former smoker Age Started Using Tobacco: 19; Age Quit Using Tobacco: 44; packs per day: 1; Years Smoked: 25; Smoking End Date: 31 YEARS AGO; Number of Years Since Quit: 31; Second Hand Exposure: Yes; Do You Dip or Chew Tobacco: No; Tobacco Cessation Education Requested by Patient: No Hx Alcohol Use: No Hx Substance Use: No Preferred Language: Armenian Communication Ability: Effective Visual Impairment: Limited Hearing Ability: Normal Decay Control Operator Required: No Beliefs That Will Affect Care: None marital status: Current Living Situation: Spouse current occupational status: retired Other Information That Helps Us Care for You: No Feels Safe at Home: Yes Safety Concerns: Feels Safe At This Time Childhood Exposure to Second-Hand Smoke: No caffeine: Yes Dental Care, Regularly: Yes Physical Activity Frequency: 3-4 Times per Week Physical Activity Frequency Comment: typically does- has not been with recent hernia Seatbelt Use: always Sunscreen Use: Yes Assistive Devices: Glasses Review of Systems Review of Systems: All systems reviewed & are unremarkable except as noted in HPI & below Physical Exam Constitutional: well developed, well nourished and + obese; no acute distress Eyes: + anicteric sclerae; normal pupil size ENMT: external ear and nose normal, oropharynx normal Respiratory: normal respiratory effort, lungs clear to auscultation Cardiovascular: Rate/Rhythm: + tachycardic and + irregularly irregular Heart Sounds: no murmur Vessels: no JVD Extremities: normal capillary refill and + pedal edema (1+ pre-tibial equal b/l); no calf tenderness Gastrointestinal (Abdomen): normal bowel sounds, soft, nontender, no hepatosplenomegaly Musculoskeletal: no cyanosis or clubbing, extremities motor strength 5/5 Skin: no rashes, warm and dry Neurologic: moves all extremities and awake; no focal motor deficits and not confused Psychiatric: A+Ox3, euthymic affect Genitourinary: no CVA tenderness Results & Data Results & Data ([facility]) Vital Signs (Past 12 Hours) Vital Signs Temp Pulse Pulse Resp BP BP Pulse Ox 11/23/20 16:20 122 H 19 94 11/23/20 16:15 124 H 12 132/91 94 11/23/20 16:14 95 11/23/20 15:50 129 H 16 93 11/23/20 15:45 131 H 15 109/91 95 11/23/20 15:40 129 H 15 95 11/23/20 15:36 128 H 14 141/99 H 96 11/23/20 15:30 138 H 20 96 11/23/20 15:22 129 H 21 95 11/23/20 15:16 124 H 124 H 16 137/87 137/87 96 11/23/20 15:06 36.6 C 124 H 22 132/81 95 Diagnostic Findings XR chest 1V portable IMPRESSION: No acute process. CT angio chest PE protocol IMPRESSION: 1. No pulmonary emboli. 2. No pleural effusion, adenopathy or airspace consolidation. 3. Hepatic steatosis. Medications Administered ER medications given: Metoprolol 5 mg IV NSS 500 mL bolus ECG Indication: chest pain Rate (beats per minute): 122 Findings: + other (T wave flattening in inferior leads) Comparison ECG Date: from (April 03, 2019) Change: the following changes noted (Atrial fibrillation replaced sinus rhythm, T wave flattening is new) Code Status & VTE Plan Code Status Full VTE Prophylaxis Plan VTE Prophylaxis will be ordered: Yes PG Care Time/CCT Total # of Minutes Spent Total Time Spent with Patient: Total time spent is greater than 50% in coordination of care (as documented) at patient's floor/unit and/or counseling patient: Coding Level of Care Code 72468 OBS Care - Level 3 Diagnoses Atrial fibrillation with RVR I48.91 Coronary artery disease I25.10 Hypertension I10 Hypertension type: essential hypertension Diabetes E11.9 Parkinsonism G20 Parkinsonism type: Parkinson's disease (1) Parkinsonism Parkinsonism type: Parkinson's disease Qualified Code(s): G20 - Parkinson's disease (2) Hypertension Hypertension type: essential hypertension Qualified Code(s): I10 - Essential (primary) hypertension
[2020-11-23] MEDS ORDERED: METOPROLOL TARTRATE 25 MG TAB PO STA (17:37)
[2020-11-23] MEDS ORDERED: METOPROLOL TARTRATE 1 MG/ML VIAL IV STA (17:47)
[2020-11-23] MEDS ORDERED: CARBIDOPA/LEVODOPA 25/100MG TAB PO STA (17:55)
[2020-11-23] MEDS ORDERED: ALPRAZolam 0.5 MG TABLET PO PRN (19:06)
[2020-11-23] MEDS ORDERED: ONDANSETRON INJ 2 MG/ML 2 ML VIAL IV PRN (19:06)
[2020-11-23] MEDS ORDERED: ACETAMINOPHEN 325 MG TAB PO PRN (19:06)
[2020-11-23] MEDS ORDERED: CARBIDOPA/LEVODOPA 50/200MG EXT REL TAB PO SCH (21:00)
--- NOTE | 2020-11-23 23:12 | Electrocardiogram Report ---
Test Reason : Blood Pressure : / mmHG Vent. Rate : 122 BPM Atrial Rate : 153 BPM P-R Int : 000 ms QRS Dur : 084 ms QT Int : 322 ms P-R-T Axes : 000 006 032 degrees QTc Int : 458 ms Atrial fibrillation with rapid ventricular response Abnormal ECG When compared with ECG of 03-APR-2019 09:54, Atrial fibrillation has replaced Sinus rhythm Vent. rate has increased BY 46 BPM Non-specific change in ST segment in Inferior leads T wave amplitude has decreased in Inferior leads Confirmed by Tahir Rankin ([id number]) on 11/23/2020 11:11:54 PM Referred By: Confirmed By:Tahir Rankin
[2020-11-24] MEDS: CARBIDOPA/LEVODOPA 25/100MG TAB PO SCH ×4 (06:03→17:36)
[2020-11-24 07:30] LABS: BUN Creatinine Ratio 14.7 (10-20); Blood Urea Nitrogen 13 mg/dl (7-18); Calcium 9.1 mg/dl (8.5-10.1); Carbon Dioxide 28 mmol/L (21-32); Chloride 107 mmol/L (98-107); Creatinine Clr Calc Pharmacy 96.7 ml/min; Est GFR (African American) 99.5; Est GFR (Non-African American) 85.8; Glucose 99 mg/dl (70-99); Potassium 4.1 mmol/L (3.5-5.1); Sodium 140 mmol/L (136-145)
[2020-11-24 07:41] LABS: Troponin I < 0.015 ng/ml (0-0.045)
--- NOTE | 2020-11-24 07:50 | Communication Note ---
Date of Service: November 23, 2020 Patient converted to NSR with rate in 60-70s. Suspect metoprolol succinate 50mg PO daily will be a sufficient does for him going forward and can likely be dis charged in AM.
[2020-11-24] MEDS ORDERED: ROSUVASTATIN CALCIUM 5 MG TAB PO SCH (09:00)
[2020-11-24] MEDS ORDERED: CYANOCOBALAMIN 500 MCG TABLET (VITAMIN B-12) PO SCH (09:00)
[2020-11-24] MEDS ORDERED: CHOLECALCIFEROL 1,000 UNITS 25 MCG TAB PO SCH (09:00)
[2020-11-24] MEDS ORDERED: METOPROLOL SUCC 50MG EXT REL TAB PO SCH (09:00)
--- NOTE | 2020-11-24 11:32 | XCELERA ---
[id number]
[2020-11-24] MEDS ORDERED: WARFARIN SOD 7.5 MG TAB PO SCH (16:00)
--- NOTE | 2020-11-24 16:13 | Discharge Summary ---
Date of Service November 24, 2020 Admission HPI Per Admitting Provider Bisi Greer is a 75 year old male who presents to the ER with chest pain, shortness of breath and tachycardia. He reports symptoms started around 1pm. He used a pulse oximeter and his heart rate was jumping around 120-130. He reports chest pressure lasted for around 2 hours, relieved spontaneously without medication in the ER. No radiation. He has been having recent chest discomfort which have been different to the one he had today. As part of his workup he had a positive stress test and subsequent cardiac catheterization on November 12 showing non-obstructive coronary artery disease. Following this it was recommended he start on metoprolol succinate 25mg and amlodipine 2.5mg PO but he is yet to start on these medications. In the ER EKG showed atrial fibrillation which he reports is new for him. He was given 5mg metoprolol IV which slowed his HR to 110s. He was referred to medicine for admission and ongoing management of atrial fibrillation with RVR. Discharge Data Allergies Allergy/AdvReac Type Severity Reaction Status Date / Time ciprofloxacin Allergy Unknown Unknown Verified 11/23/20 15:57 niacin Allergy Unknown "SHOWED Verified 11/23/20 15:57 WHAT LOOKED LIKE A TUMOR ON MY LIVER" paroxetine Allergy Unknown UNKNOWN Verified 11/23/20 15:57 sulfamethoxazole Allergy Unknown Unknown Verified 11/23/20 15:57 trimethoprim Allergy Unknown Unknown Verified 11/23/20 15:57 Qobkvjh-Eqk-Kvx Reductase AdvReac Unknown BONE ACHES Verified 11/23/20 15:57 Inhibitor AND MUSCLE ACHES Consultations 11/23/20 17:05 ED Decision to Admit Stat Ordered Studies 11/23/20 15:12 CT angio chest PE protocol Stat Hospital Course (1) Atrial fibrillation with RVR: New onset. Not taking prescribed metoprolol prior to admission Metoprolol 5mg IV given in ER, give additional 5mg now with 25mg metoprolol tartrate. Start metoprolol succinate 50mg PO daily. Already anticoagulated chronically with warfarin for prior SD/DVTs therefore will continue this. TSH with AM labs Repeat troponin with AM labs No need to repeat TTE as recently performed cardiac catheterization (2) Coronary artery disease: Non-obstructive Continue aspirin, metoprolol, rosuvastatin (3) Hypertension: Stop amlodipine, patient not taking this yet anyway. In favor of increased metoprolol dosing as above. (4) Diabetes: HbA1C 5.8. Hold metformin during inpatient admission. (5) Parkinsonism: Continue his usual Sinemet dosing Discharge Plan Discharge Items Patient Disposition: Home - Self-Care Reason For Visit: Atrial Fibrillation Discharge Diagnosis: Atrial fibrillation - resolved, spontaneous conversion back to normal rhythm on 11/23/2020 No evidence of heart attack No evidence of congestive heart failure Activity: Resume your previous activity Non-emergency contact: Primary Care Provider and Runstitching Machine Operator Call non-emergency contact if: you have any medication questions and your symptoms worsen Follow-up/Referrals: [facility] [Provider Group] (can arrange follow-up with any provider at [facility] as desired ) Jasvir Borjas MD [Primary Care Provider] - (please see Dr Borjas within 1 week ) Diet: Heart Healthy Ambulatory Orders: Basic Metabolic Panel (Routine) Timeframe: 1 Day Location: Determined by Patient Ordered By: Yakov Pagan Attending Provider Instructions: Mr Greer, You were hospitalized briefly for new-onset atrial fibrillation (a.fib). Within a short period of time following admission you converted back to normal sinus rhythm. You stayed in normal rhythm since then. It is possible that you go back into a.fib in the future. Signs or symptoms that you have gone back into a.fib include rapid heart rate (especially if your heart rate is consistently over 100), shortness of breath, palpitations/heart beating irregularly, chest discomfort, fatigue, etc. If you do go back into a.fib hopefully the metoprolol succinate will keep your heart rate down at a reasonable level. Continue to check your blood pressure and heart rate at home once-twice daily. Write these values down in a notebook. A.fib can cause strokes by leading to blood clot formation in your heart. Thankfully you are already on warfarin and your blood is thin. Your INR was 2.5 on 11/23/20. Please take metoprolol succinate 50mg once daily for your heart, the a.fib, and your blood pressure. During your stay you had no evidence of congestive heart failure on CAT scan of the lungs or on physical exam. Lastly, because you received IV contrast dye on 11/23/20 for your CAT scan please HOLD your metformin. Obtain a blood draw either tomorrow or Tuesday. If the blood work is normal you can resume your metformin at that time. Follow-up - see Dr Borjas within 1 week See the retina subspecialist as already scheduled Return to [facility] if - * you have concerns that you are back in a.fib and your heart rate is c onsistently fast (>100) * you are short of breath or having chest symptoms/pain * you feel faint, dizzy, or pass out * any other concerns It was a pleasure meeting you! -Dr Coulter Pending Studies at Discharge: No Stand-Alone Forms: My [facility], Smoking Cessation Medications and DC Order Prescriptions: New metoprolol succinate 50 mg capsule,sprinkle,ER 24hr 50 mg PO DAILY Qty: 30 RF: 2 Continued carbidopa-levodopa [Sinemet] 25-100 mg tablet 1 tab PO QID RF: 0 docusate sodium 100 mg capsule 100 mg PO Q OTHER DAY PRN (Reason: Constipation) RF: 0 cyanocobalamin (vitamin B-12) 1,000 mcg capsule 1,000 mcg PO DAILY RF: 0 warfarin 5 mg tablet See Rx Instructions PO UD Qty: 130 RF: 2 amlodipine 2.5 mg tablet 2.5 mg PO DAILY RF: 0 alprazolam 0.5 mg tablet 0.5 mg PO TID PRN (Reason: ANXIETY, PTSD) Qty: 270 RF: 0 ketoconazole 2 % shampoo 1 applic topical .COMPLEX Qty: 120 RF: 3 amoxicillin 500 mg capsule 2,000 mg PO UD PRN (Reason: PRE DENTAL) Qty: 4 RF: 0 rosuvastatin 5 mg tablet 2.5 mg PO DAILY RF: 0 cholecalciferol (vitamin D3) [Vitamin D3] 2,000 unit Tablet 6,000 unit PO DAILY RF: 0 carbidopa-levodopa 50-200 mg tablet extended release 1 tab PO HS RF: 0 Discontinued metformin 500 mg tablet 250 mg PO BID RF: 0 Discharge Orders: Discharge Order (Routine); Ordered 11/24/20 Ordered By: Yakov Live/Other Patient Handouts: AFL/Afib, Understanding Atrial Fibrillation Admission Data Admit Date/Time: 11/23/20 17:50 Attending Provider: Yakov Coulter Admit Provider: Yakov Ortiz Primary Care Provider: Jasvir Borjas Other Providers: Yakov Ortiz Coding Diagnoses Atrial fibrillation with RVR I48.91 Coronary artery disease I25.10 Hypertension I10 Hypertension type: essential hypertension Diabetes E11.9 Parkinsonism G20 Parkinsonism type: Parkinson's disease
[2020-11-26] MEDS ORDERED: WARFARIN SOD 5 MG TAB PO SCH (16:00)
== END 2020-11-24 17:45 | disposition home or self-care (01) ==
LOC: ED 15:00 → 2N 15:00 → SUATTDRO 17:50 → 2N 18:19